=== PATIENT | male | born 1940 | race Caucasian/White ===

== ENCOUNTER 2023-02-22 10:56 | Outpatient (AMB) | payer OTHER, SELFPAY ==
[2023-02-22 11:16] VITALS: BP 120/80; PULSE 61; O2SAT 95; BMI 34.5
--- NOTE | 2023-02-22 11:16 | A.OFFPC_ITS ---
Vital Signs 02/22/23 11:16 Height 5 ft 11 in Weight 247 lb 4 oz BMI 34.5 BP 120/80 Blood Pressure Location Lt brachial Position Sitting Pulse 61 Pulse Source Pulse Oximeter Pulse Oximetry (%) 95 Oxygen Delivery Method Room Air Intake Visit Reasons: HTN, GERD, anxiety Due Diligence Coordinator Required: No Accompanied by: Self / Same As Patient Allergies No Known Drug Allergies Allergy (Unknown, Verified 02/22/23 12:04) Unknown Medication List - Last Reconciled 02/22/23 by Prudencio Hwang MD alprazolam ER 1 mg PO QAM PRN 90 days bupropion HCl 300 mg PO DAILY 90 days mirtazapine 15 mg PO BEDTIME 90 days omeprazole 40 mg PO DAILY 90 days valsartan-hydrochlorothiazide 160-12.5 mg 1 tab PO DAILY 90 days Tobacco use date assessed: 02/22/23 Fall risk assessment: No Falls in past year Last assessed Fall Risk: 02/22/23 Dental Screening Dental Screen Date: 02/22/23 Did you have a dental visit in the last 12 months?: Yes Did you have a dental problem in the last 6 months where you did not have access to dental care?: No Was dental information given to patient?: Patient has dentist HPI HTN, GERD, anxiety HPI Details Patient comes in today for his follow up visit States that he feels okay Is still feeling somewhat depressed lately since his a few months ago States that his children checks up on him regularly to make sure he is doing okay He denies any headaches or dizziness Denies any chest pains, no SOB No nausea/vomiting, no abdominal pain No change in bowel habits noted Needs several of his Rx refilled Had his follow up labs done at [facility] about 4 weeks ago - will try to follow up the results of these labs [facility] Medical History Obesity (BMI 30-39.9) Melanoma Depression Anxiety GERD without esophagitis Achilles tendinosis of right lower extremity Degenerative arthritis of right knee Vitamin D deficiency Benign essential hypertension Surgical History H/O right knee surgery History of cataract surgery Family History Mother No problems noted. Father No problems noted. Social History Housing: Condominium Alcohol intake: current Alcohol intake frequency: a few times a month Patient Tobacco Use Status: Never used Tobacco e-Cigarette/Vaping Use: Never Used Second Hand Smoke Exposure: Yes Current occupational status: retired Cognitive needs: No Hearing needs: Yes Vision needs: Yes Questionnaire PHQ-9 Over the last 2 weeks, how often have you been bothered by any of the following problems? 1. Little interest or pleasure in doing things: not at all 2. Feeling down, depressed, or hopeless: not at all 3. Trouble falling or staying asleep, or sleeping too much: not at all 4. Feeling tired or having little energy: not at all 5. Poor appetite or overeating: not at all 6. Feeling bad about yourself - or that you are a failure or have let yourself or your family down: not at all 7. Trouble concentrating on things, such as reading the newspaper or watching television: not at all 8. Moving or speaking so slowly that other people could have noticed. Or the opposite - being so fidgety or restless that you have been moving around a lot more than usual: not at all 9. Thoughts that you would be better off or of hurting yourself in some way: not at all Total score: 0 Depression Screening Interpretation: Negative (is on Rx) Depression Screening Done: Yes 63157 - PHQ-9 Billing: Yes Source: Developed by Drs. Marco A Werner, Adelaida Davis, Jero Patiño and colleagues, with an educational colette from [employer]. Thrive Questionnaire Date Thrive assessed: 02/22/23 I am a: Patient What is your living situation today?: I have a steady place to live Within the past 12 months, did the food you bought not last and you didn't have the money to get more?: Never true Within the past 12 months, did you worry whether your food would run out before you got money to buy more?: Never true Do you have trouble paying for medicines?: No Do you have trouble getting transportation to medical appointments?: No Do you have trouble paying your heating and electricity bill?: No Do you have trouble taking care of your child, family member or friend?: No Do you have trouble with day-to-day activities such as bathing, preparing meals, shopping, managing finances, etc.?: No Are you currently unemployed and looking for a job?: No Are you interested in more education?: No Please select the resources that you would like help with: None Currently or been in a relationship where the following occur: no concerns reported AUDIT C Alcohol Use Questionnaire (AUDIT-C) 1. How often do you have a drink containing alcohol?: 2-3 times a week 2. How many drinks containing alcohol do you have on a typical day when you are drinking?: 1 or 2 3. How often do you have six or more drinks on one occasion?: Never Total Score: 3 Score Reviewed/Action Taken: Yes KINJAL-7 AMB Questionnaire KINJAL-7 Date KINJAL - 7 assessed: 02/22/23 Feeling nervous, anxious, or on edge: 0 = Not at all Not being able to stop or control worryin = Not at all Worrying too much about different things: 0 = Not at all Trouble relaxin = Not at all Being so restless that it is hard to sit still: 0 = Not at all Becoming easily annoyed or irritable: 0 = Not at all Feeling afraid as if something awful might happen: 0 = Not at all Total KINJAL-7 score (0-4 normal; 5-9 mild; 10-14 moderate; 15-21 severe): 0 Source: Developed by Drs. Marco A Werner, Adelaida Davis, Jero Patiño and colleagues, with an educational colette from [employer]. Review of Systems Const Denies fatigue, Denies fever(s) and Denies headache(s) ENT Denies dysphagia, Denies dizziness, Denies otalgia, Denies headache(s), Denies odynophagia and Denies sore throat Card Denies chest pain, Denies palpitations and Denies dyspnea Resp Denies cough and Denies dyspnea GI Denies abdominal pain, Denies constipation, Denies dysphagia, Denies heartburn, Denies diarrhea, Denies loose stools, Denies nausea, Denies odynophagia and Denies vomiting Denies dysuria, Denies nocturia and Denies urinary frequency Musc Denies back pain Skin/Breast Denies rash Neuro Denies dizziness and Denies headache(s) Psych Reports depression (Rx helping) Endo Denies fatigue and Denies palpitations Physical exam (Primary Care) Vital Signs: Last Vital Signs Pulse 61 02/22/23 11:16 BP 120/80 02/22/23 11:16 Pulse Ox 95 02/22/23 11:16 Oxygen Delivery Method Room Air 02/22/23 11:16 BMI result Body Mass Index 34.5 Tobacco/Smoking Status: Tobacco use Status Tobacco use date assessed 02/22/23 02/22/23 11:18 Patient Tobacco Use Status Never used Tobacco 02/22/23 11:18 e-Cigarette/Vaping Use Never Used 02/22/23 11:18 PHQ-9: PHQ-9 Score PHQ-9: Total score 0 02/22/23 12:04 Depression Screening Interpretation: Negative (is on Rx) Thrive Assessment: Date of Thrive Assessment Date Thrive assessed 02/22/23 02/22/23 11:18 Currently or been in a relationship where the following occur: no concerns reported Const General: no acute distress and alert HENMT Ears: TM's normal bilaterally and EAC's normal Throat: Yes posterior oropharynx normal and Yes tonsils normal (no TP congestion) Neck Neck: Yes no lymphadenopathy and Yes supple Resp Auscultation: clear to auscultation bilaterally, no rales and no wheezes Cardio Rate: regular rate Rhythm: regular rhythm Heart sounds: no murmurs GI Palpation (GI): Soft to palpation and nontender Auscultation: normal bowel sounds Skin Rashes: no rashes Extrem General: Yes no clubbing, cyanosis or edema Assessment and Plan Assessment & Plan (1) Benign essential hypertension: Code(s): I10 - Essential (primary) hypertension Plan: Will try to follow up the results of his labs done at [facility] last month - patient is advised that we will check back with him if there are any unexpected or unusual resuits once we get the chance to go over his lab results as soon as we receive them from [facility] Reinforced low sodium diet - goal is systolic BP of at least 140 mm or less Continue Valsartan-HCT 160-12.5 mg QD Will have patient recheck his labs in 4 months for follow up (2) Vitamin D deficiency: Code(s): E55.9 - Vitamin D deficiency, unspecified Plan: Corrected on his previous labs done earlier this year Will recheck his Vitamin D level in 4 months for follow up (3) GERD without esophagitis: Code(s): K21.9 - Gastro-esophageal reflux disease without esophagitis Plan: Dietary restrictions reinforced Continue Omeprazole 40 mg QD Follow up with GI as scheduled (4) Frequent loose stools: Code(s): R19.7 - Diarrhea, unspecified Qualifiers: Diarrhea type: unspecified type Qualified Code(s): R19.7 - Diarrhea, unspecified Plan: Resolved - states that this appears to have been due to nerves (anxiety) He was referred to [facility] in [place] for repeat colonoscopy previously but he was not happy at being told that he needed to schedule an appointment to see the doctor there first before they can schedule him for the procedure as Dr. Goddard, who he used to see before, is no longer working with them States that he decided that he did not want to wait a few months to see the doctor and no longer wants to do his colonoscopy as he feels that he no longer n eeds it at his age Have agreed to at least do Cologuard testing, which came out negative in October 2022 (5) Anxiety: Code(s): F41.9 - Anxiety disorder, unspecified Plan: Continue Alprazolam ER 1 mg Q AM PRN and Bupropion XL 300 mg Q AM (6) Depression: Code(s): F32.A - Depression, unspecified Qualifiers: Active/Remission status: currently active Depression Type: major depressive disorder Major depression episode severity: unspecified Major depression recurrence: recurrent Qualified Code(s): F33.9 - Major depressive disorder, recurrent, unspecified Plan: Continue Bupropion XL 300 mg Q AM and Mirtazapine 15 mg Q HS Is feeling somewhat more depressed lately as his a few months ago Follow up with psychiatry as scheduled (7) Obesity (BMI 30-39.9): Code(s): E66.9 - Obesity, unspecified Plan: Reinforced diet/exercise as tolerated/lose weight Plan Follow up in 4 months Orders: Orders Complete Blood Count Auto Diff 4 Months I10 - Essential (primary) hypertension Lipid Panel 4 Months E78.00 - Pure hypercholesterolemia, unspecified TSH reflex Free T4 4 Months E78.00 - Pure hypercholesterolemia, unspecified UA CC w/rflx Micro + Cult 4 Months R30.0 - Dysuria Comprehensive Gordon. Panel Fast 4 Months E78.00 - Pure hypercholesterolemia, unspecified Vitamin D 25-OH Total 4 Months E55.9 - Vitamin D deficiency, unspecified Medications: Refilled mirtazapine 15 mg PO BEDTIME 90 days 90 tabs 3RF F32.A - Depression, unspecified omeprazole 40 mg PO DAILY 90 days 90 caps 3RF K21.9 - Gastro-esophageal reflux disease without esophagitis valsartan-hydrochlorothiazide 160-12.5 mg 1 tab PO DAILY 90 days 90 tabs 3RF I10 - Essential (primary) hypertension bupropion HCl 300 mg PO DAILY 90 days 90 tabs 3RF F32.A - Depression, unspecified, F41.9 - Anxiety disorder, unspecified Coding Level of Care Code Est Pt Level 4 (08663) Diagnoses Benign essential hypertension I10 Vitamin D deficiency E55.9 GERD without esophagitis K21.9 Diarrhea, unspecified type R19.7 Diarrhea type: unspecified type Anxiety F41.9 Episode of recurrent major depressive disorder, unspecified depression episode severity F33.9 Active/Remission status: currently active Depression Type: major depressive disorder Major depression episode severity: unspecified Major depression recurrence: recurrent Obesity (BMI 30-39.9) E66.9
== END 2023-02-22 12:14 | disposition home or self-care (01) ==
PROVIDERS: PCP Internal Medicine; Visit Provider Internal Medicine
DX: I10 Essential (primary) hypertension (principal); F33.9 Major depressive disorder, recurrent, unspecified; Z68.34 Body mass index [BMI] 34.0-34.9, adult; E55.9 Vitamin D deficiency, unspecified; E66.9 Obesity, unspecified; K21.9 Gastro-esophageal reflux disease without esophagitis; R19.7 Diarrhea, unspecified; F41.9 Anxiety disorder, unspecified
CPT/HCPCS: 99214

== ENCOUNTER 2023-07-12 11:25 | Outpatient (AMB) | payer OTHER, SELFPAY ==
[2023-07-12 11:38] VITALS: BP 130/74; PULSE 61; O2SAT 96; BMI 33.8
--- NOTE | 2023-07-12 11:38 | MHC.PC.OV ---
Vital Signs 07/12/23 11:38 Height 5 ft 11 in Weight 242 lb 8 oz BMI 33.8 BP 130/74 Blood Pressure Location Lt brachial Position Sitting Pulse 61 Pulse Source Pulse Oximeter Pulse Oximetry (%) 96 Oxygen Delivery Method Room Air Intake Visit Reasons: HTN, GERD, dyslipidemia, anxiety Cable Tool Operator Required: No Accompanied by: Self / Same As Patient Allergies No Known Drug Allergies Allergy (Unknown, Verified 07/12/23 12:14) Unknown Medication List - Last Reconciled 07/12/23 by Prudencio Hwang MD alprazolam ER 1 mg PO QAM PRN 90 days bupropion HCl 300 mg PO DAILY 90 days mirtazapine 15 mg PO BEDTIME 90 days omeprazole 40 mg PO DAILY 90 days valsartan-hydrochlorothiazide 160-12.5 mg 1 tab PO DAILY 90 days Tobacco use date assessed: 07/12/23 Fall risk assessment: No Falls in past year Last assessed Fall Risk: 07/12/23 Dental Screening Dental Screen Date: 07/12/23 Did you have a dental visit in the last 12 months?: Yes Did you have a dental problem in the last 6 months where you did not have access to dental care?: No Was dental information given to patient?: Patient has dentist HPI HTN, GERD, dyslipidemia, anxiety HPI Details Patient comes in today for his follow up visit States that he feels well He denies any headaches or dizziness Denies any chest pains, no shortness of breath No nausea/ vomiting, no abdominal pain No change in bowel habits noted Had his follow-up labs done at [facility] last month - to discuss his results [facility] Medical History Obesity (BMI 30-39.9) Melanoma Depression Anxiety GERD without esophagitis Achilles tendinosis of right lower extremity Degenerative arthritis of right knee Vitamin D deficiency Benign essential hypertension Surgical History H/O right knee surgery History of cataract surgery Family History Mother No problems noted. Father No problems noted. Social History Housing: Condominium Alcohol intake: current Alcohol intake frequency: a few times a month Patient Tobacco Use Status: Never used Tobacco e-Cigarette/Vaping Use: Never Used Second Hand Smoke Exposure: Yes service: No Current occupational status: retired Cognitive needs: No Hearing needs: Yes Vision needs: Yes Questionnaire PHQ-9 Over the last 2 weeks, how often have you been bothered by any of the following problems? 1. Little interest or pleasure in doing things: not at all 2. Feeling down, depressed, or hopeless: not at all 3. Trouble falling or staying asleep, or sleeping too much: not at all 4. Feeling tired or having little energy: not at all 5. Poor appetite or overeating: not at all 6. Feeling bad about yourself - or that you are a failure or have let yourself or your family down: not at all 7. Trouble concentrating on things, such as reading the newspaper or watching television: not at all 8. Moving or speaking so slowly that other people could have noticed. Or the opposite - being so fidgety or restless that you have been moving around a lot more than usual: not at all 9. Thoughts that you would be better off or of hurting yourself in some way: not at all Total score: 0 Depression Screening Interpretation: Negative (is on Rx) Depression Screening Done: Yes 22848 - PHQ-9 Billing: Yes Source: Developed by Drs. Marco A Werner, Adelaida Davis, Jero Patiño and colleagues, with an educational colette from [employer]. Thrive Questionnaire Date Thrive assessed: 07/12/23 I am a: Patient What is your living situation today?: I have a steady place to live Within the past 12 months, did the food you bought not last and you didn't have the money to get more?: Never true Within the past 12 months, did you worry whether your food would run out before you got money to buy more?: Never true Do you have trouble paying for medicines?: No Do you have trouble getting transportation to medical appointments?: No Do you have trouble paying your heating and electricity bill?: No Do you have trouble taking care of your child, family member or friend?: No Do you have trouble with day-to-day activities such as bathing, preparing meals, shopping, managing finances, etc.?: No Are you currently unemployed and looking for a job?: No Are you interested in more education?: No Please select the resources that you would like help with: None Currently or been in a relationship where the following occur: no concerns reported THRIVE Score: 0 AUDIT C Alcohol Use Questionnaire (AUDIT-C) 1. How often do you have a drink containing alcohol?: 2-3 times a week 2. How many drinks containing alcohol do you have on a typical day when you are drinking?: 1 or 2 3. How often do you have six or more drinks on one occasion?: Never Total Score: 3 Score Reviewed/Action Taken: Yes KINJAL-7 AMB Questionnaire KINJAL-7 Date KINJAL - 7 assessed: 07/12/23 Feeling nervous, anxious, or on edge: 0 = Not at all Not being able to stop or control worryin = Not at all Worrying too much about different things: 0 = Not at all Trouble relaxin = Not at all Being so restless that it is hard to sit still: 0 = Not at all Becoming easily annoyed or irritable: 0 = Not at all Feeling afraid as if something awful might happen: 0 = Not at all Total KINJAL-7 score (0-4 normal; 5-9 mild; 10-14 moderate; 15-21 severe): 0 Source: Developed by Drs. aMrco A Werner, Adelaida Davis, Jero Patiño and colleagues, with an educational colette from [employer]. Review of Systems Const Denies fatigue, Denies fever(s) and Denies headache(s) ENT Denies dysphagia, Denies dizziness, Denies otalgia, Denies headache(s), Denies odynophagia and Denies sore throat Card Denies chest pain, Denies palpitations and Denies dyspnea Resp Denies cough and Denies dyspnea GI Denies abdominal pain, Denies constipation, Denies dysphagia, Denies heartburn, Denies diarrhea, Denies loose stools, Denies nausea, Denies odynophagia and Denies vomiting Denies dysuria, Denies nocturia and Denies urinary frequency Musc Denies back pain Skin/Breast Denies rash Neuro Denies dizziness and Denies headache(s) Psych Reports depression (Rx helping) Endo Denies fatigue and Denies palpitations Physical exam (Primary Care) Vital Signs: Last Vital Signs Pulse 61 07/12/23 11:38 BP 130/74 07/12/23 11:38 Pulse Ox 96 07/12/23 11:38 Oxygen Delivery Method Room Air 07/12/23 11:38 BMI result Body Mass Index 33.8 Tobacco/Smoking Status: Tobacco use Status Tobacco use date assessed 07/12/23 07/12/23 11:40 Patient Tobacco Use Status Never used Tobacco 07/12/23 11:40 e-Cigarette/Vaping Use Never Used 07/12/23 11:40 PHQ-9: PHQ-9 Score PHQ-9: Total score 0 07/12/23 12:15 Depression Screening Interpretation: Negative (is on Rx) Thrive Assessment: Date of Thrive Assessment Date Thrive assessed 07/12/23 07/12/23 11:40 Currently or been in a relationship where the following occur: no concerns reported Const General: no acute distress and alert HENMT Ears: TM's normal bilaterally and EAC's normal Throat: Yes posterior oropharynx normal and Yes tonsils normal (no TP congestion) Neck Neck: Yes no lymphadenopathy and Yes supple Resp Auscultation: clear to auscultation bilaterally, no rales and no wheezes Cardio Rate: regular rate Rhythm: regular rhythm Heart sounds: no murmurs GI Palpation (GI): Soft to palpation and nontender Auscultation: normal bowel sounds General: Yes no CVA tenderness Back/Spine/Pelvis Back: no CVA tenderness Skin Rashes: no rashes Extrem General: Yes no clubbing, cyanosis or edema Assessment and Plan Assessment & Plan (1) Benign essential hypertension: Code(s): I10 - Essential (primary) hypertension Plan: Results of his labs done at [facility] last month reviewed and discussed with patient Reinforced low sodium diet - goal is systolic BP of at least 140 mm or less Continue Valsartan-HCT 160-12.5 mg QD (2) Vitamin D deficiency: Code(s): E55.9 - Vitamin D deficiency, unspecified Plan: Corrected on his labs done last month (3) GERD without esophagitis: Code(s): K21.9 - Gastro-esophageal reflux disease without esophagitis Plan: Dietary restrictions reinforced Continue Omeprazole 40 mg QD Follow up with GI as scheduled Patient also had a Cologuard test done last year that came out negative (4) Anxiety: Code(s): F41.9 - Anxiety disorder, unspecified Plan: Continue Alprazolam ER 1 mg Q AM PRN and Bupropion XL 300 mg Q AM (5) Depression: Code(s): F32.A - Depression, unspecified Qualifiers: Active/Remission status: currently active Depression Type: major depressive disorder Major depression episode severity: unspecified Major depression recurrence: recurrent Qualified Code(s): F33.9 - Major depressive disorder, recurrent, unspecified Plan: Continue Bupropion XL 300 mg Q AM and Mirtazapine 15 mg Q HS He was feeling somewhat depressed when his last year but states that he is feeling better now Follow up with psychiatry as scheduled (6) Obesity (BMI 30-39.9): Code(s): E66.9 - Obesity, unspecified Plan: Reinforced diet/exercise as tolerated/lose weight Plan Follow up in 4 months Coding Level of Care Code Est Pt Level 4 (64074) Diagnoses Benign essential hypertension I10 Vitamin D deficiency E55.9 GERD without esophagitis K21.9 Anxiety F41.9 Episode of recurrent major depressive disorder, unspecified depression episode severity F33.9 Active/Remission status: currently active Depression Type: major depressive disorder Major depression episode severity: unspecified Major depression recurrence: recurrent Obesity (BMI 30-39.9) E66.9
== END 2023-07-12 12:21 | disposition home or self-care (01) ==
PROVIDERS: PCP Internal Medicine; Visit Provider Internal Medicine
DX: I10 Essential (primary) hypertension (principal); F33.9 Major depressive disorder, recurrent, unspecified; E66.9 Obesity, unspecified; Z68.33 Body mass index [BMI] 33.0-33.9, adult; E55.9 Vitamin D deficiency, unspecified; K21.9 Gastro-esophageal reflux disease without esophagitis; F41.9 Anxiety disorder, unspecified
CPT/HCPCS: 99214

== ENCOUNTER 2023-11-15 09:16 | Outpatient (AMB) | payer OTHER, SELFPAY ==
[2023-11-15 09:20] VITALS: BP 122/60; PULSE 76; O2SAT 94; BMI 33.9
--- NOTE | 2023-11-15 09:20 | MHC.PC.OV ---
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 Required: No Allergies No Known Drug Allergies Allergy (Unknown, Verified 11/15/23 09:29) Unknown Medication List - Last Reconciled 11/15/23 by Prudencio Hwang MD alprazolam ER 1 mg PO QAM PRN 90 days bupropion HCl XL 300 mg PO DAILY 90 days mirtazapine 15 mg PO BEDTIME 90 days omeprazole 40 mg PO DAILY 90 days valsartan-hydrochlorothiazide 160-12.5 mg 1 tab PO DAILY 90 days Tobacco use date assessed: 07/12/23 Fall risk assessment: No Falls in past year Last assessed Fall Risk: 11/15/23 Dental Screening Dental Screen Date: 07/12/23 HPI 4 Month F/U HPI Details Patient comes in today for his follow up visit States that he feels okay He denies any headaches or dizziness Denies any chest pains, no shortness of breath No nausea/ vomiting, no abdominal pain No change in bowel habits noted PFSH Medical History Obesity (BMI 30-39.9) Melanoma Depression Anxiety GERD without esophagitis Achilles tendinosis of right lower extremity Degenerative arthritis of right knee Vitamin D deficiency Benign essential hypertension Surgical History H/O right knee surgery History of cataract surgery Family History Mother No problems noted. Father No problems noted. Social History Housing: Condominium Alcohol intake: current Alcohol intake frequency: a few times a month Patient Tobacco Use Status: Never used Tobacco e-Cigarette/Vaping Use: Never Used Second Hand Smoke Exposure: Yes service: No Current occupational status: retired Cognitive needs: No Hearing needs: Yes Vision needs: Yes Questionnaire Thrive Questionnaire Date Thrive assessed: 07/12/23 I am a: Patient What is your living situation today?: I have a steady place to live Within the past 12 months, did the food you bought not last and you didn't have the money to get more?: Never true Within the past 12 months, did you worry whether your food would run out before you got money to buy more?: Never true Do you have trouble paying for medicines?: No Do you have trouble getting transportation to medical appointments?: No Do you have trouble paying your heating and electricity bill?: No Do you have trouble taking care of your child, family member or friend?: No Do you have trouble with day-to-day activities such as bathing, preparing meals, shopping, managing finances, etc.?: No Are you currently unemployed and looking for a job?: No Are you interested in more education?: No Please select the resources that you would like help with: None THRIVE Score: 0 AUDIT C Alcohol Use Questionnaire (AUDIT-C) 1. How often do you have a drink containing alcohol?: 2-3 times a week 2. How many drinks containing alcohol do you have on a typical day when you are drinking?: 1 or 2 3. How often do you have six or more drinks on one occasion?: Never Total Score: 3 Score Reviewed/Action Taken: Yes KINJAL-7 AMB Questionnaire KINJAL-7 Date KINJAL - 7 assessed: 07/12/23 Source: Developed by Drs. Marco A Werner, Adelaida Davsi, Jero Patiño and colleagues, with an educational colette from [employer]. Review of Systems Const Denies chills, Denies fatigue, Denies fever(s) and Denies headache(s) ENT Denies dysphagia, Denies dizziness, Denies otalgia, Denies headache(s), Denies neck pain, Denies odynophagia and Denies sore throat Card Denies chest pain, Denies palpitations and Denies dyspnea Resp Denies cough and Denies dyspnea GI Denies abdominal pain, Denies constipation, Denies dysphagia, Denies heartburn, Denies diarrhea, Denies loose stools, Denies nausea, Denies odynophagia and Denies vomiting Denies dysuria, Denies nocturia and Denies urinary frequency Musc Denies back pain and Denies neck pain Skin/Breast Denies rash Neuro Denies dizziness and Denies headache(s) Psych Reports depression (Rx helping) Endo Denies fatigue and Denies palpitations Physical exam (Primary Care) Vital Signs: Last Vital Signs Pulse 76 11/15/23 09:20 BP 122/60 11/15/23 09:20 Pulse Ox 94 11/15/23 09:20 Oxygen Delivery Method Room Air 11/15/23 09:20 BMI result Body Mass Index 33.9 Tobacco/Smoking Status: Tobacco use Status Tobacco use date assessed 07/12/23 11/15/23 09:24 Patient Tobacco Use Status Never used Tobacco 11/15/23 09:24 e-Cigarette/Vaping Use Never Used 11/15/23 09:24 Thrive Assessment: Date of Thrive Assessment Date Thrive assessed 07/12/23 11/15/23 09:24 Const General: no acute distress and alert HENMT Ears: TM's normal bilaterally and EAC's normal Throat: Yes posterior oropharynx normal and Yes tonsils normal (no TP congestion) Neck Neck: Yes no lymphadenopathy and Yes supple Thyroid: Thyroid normal Resp Auscultation: clear to auscultation bilaterally, no rales and no wheezes Cardio Rate: regular rate Rhythm: regular rhythm Heart sounds: no murmurs GI Palpation (GI): Soft to palpation and nontender Auscultation: normal bowel sounds General: Yes no CVA tenderness Back/Spine/Pelvis Back: no CVA tenderness Skin Rashes: no rashes Extrem General: Yes no clubbing, cyanosis or edema Assessment and Plan Assessment & Plan (1) Benign essential hypertension: Code(s): I10 - Essential (primary) hypertension Plan: Reinforced low sodium diet - goal is systolic BP of at least 140 mm or less Continue Valsartan-HCT 160-12.5 mg QD (2) GERD without esophagitis: Code(s): K21.9 - Gastro-esophageal reflux disease without esophagitis Plan: Dietary restrictions reinforced Continue Omeprazole 40 mg QD Follow up with GI as scheduled Patient also had a Cologuard test done last year that came out negative (3) Vitamin D deficiency: Code(s): E55.9 - Vitamin D deficiency, unspecified Plan: Corrected on his labs done a few months ago Continue OTC Vitamin D daily (4) Anxiety: Code(s): F41.9 - Anxiety disorder, unspecified Plan: Continue Alprazolam ER 1 mg Q AM PRN and Bupropion XL 300 mg Q AM (5) Depression: Code(s): F32.A - Depression, unspecified Qualifiers: Depression Type: major depressive disorder Major depression recurrence: recurrent Active/Remission status: currently active Major depression episode severity: unspecified Qualified Code(s): F33.9 - Major depressive disorder, recurrent, unspecified Plan: Continue Bupropion XL 300 mg Q AM and Mirtazapine 15 mg Q HS He was feeling somewhat depressed when his last year but he is feeling much better now (6) Obesity (BMI 30-39.9): Code(s): E66.9 - Obesity, unspecified Plan: Reinforced diet/exercise as tolerated/lose weight Plan Follow up in 4 months Patient is advised that he does not need to have any follow up labs done yet - we will order his labs for him at his next appointment for his early spring/late winter 2024 visit Coding Level of Care Code Est Pt Level 3 (56694) Diagnoses Benign essential hypertension I10 GERD without esophagitis K21.9 Vitamin D deficiency E55.9 Anxiety F41.9 Episode of recurrent major depressive disorder, unspecified depression episode severity F33.9 Depression Type: major depressive disorder Major depression recurrence: recurrent Active/Remission status: currently active Major depression episode severity: unspecified Obesity (BMI 30-39.9) E66.9
== END 2023-11-15 09:37 | disposition home or self-care (01) ==
PROVIDERS: PCP Internal Medicine; Visit Provider Internal Medicine
DX: I10 Essential (primary) hypertension (principal); F33.9 Major depressive disorder, recurrent, unspecified; E66.9 Obesity, unspecified; Z68.33 Body mass index [BMI] 33.0-33.9, adult; K21.9 Gastro-esophageal reflux disease without esophagitis; E55.9 Vitamin D deficiency, unspecified; F41.9 Anxiety disorder, unspecified
CPT/HCPCS: 99213

== ENCOUNTER 2024-03-20 10:16 | Outpatient (AMB) | payer OTHER, SELFPAY ==
[2024-03-20 10:21] VITALS: BP 116/62; PULSE 45; O2SAT 97; BMI 33.7
--- NOTE | 2024-03-20 10:21 | A.OFFPC_ITS ---
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 Accompanied by: Self / Same As Patient Allergies No Known Drug Allergies Allergy (Unknown, Verified 03/20/24 10:58) Unknown Medication List - Last Reconciled 03/20/24 by Prudencio Hwang MD alprazolam ER 1 mg PO QAM PRN 90 days bupropion HCl XL 300 mg PO DAILY 90 days mirtazapine 15 mg PO BEDTIME 90 days omeprazole 40 mg PO DAILY 90 days valsartan-hydrochlorothiazide 160-12.5 mg 1 tab PO DAILY 90 days Tobacco use date assessed: 03/20/24 Fall risk assessment: No Falls in past year Last assessed Fall Risk: 03/20/24 Dental Screening Dental Screen Date: 03/20/24 Did you have a dental visit in the last 12 months?: Yes Did you have a dental problem in the last 6 months where you did not have access to dental care?: No Was dental information given to patient?: Patient has dentist HPI [facility] f/u HPI Details Patient comes in today for his follow up visit States that he feels okay He denies any headaches or dizziness Denies any chest pains, no increased SOB No nausea/vomiting, no abdominal pain No change in bowel habits noted Needs a couple of his Rx refilled PFSH Medical History Obesity (BMI 30-39.9) Melanoma Depression Anxiety GERD without esophagitis Achilles tendinosis of right lower extremity Degenerative arthritis of right knee Vitamin D deficiency Benign essential hypertension Surgical History H/O right knee surgery History of cataract surgery Family History Mother No problems noted. Father No problems noted. Social History Housing: Condominium Alcohol intake: current Alcohol intake frequency: a few times a month Patient Tobacco Use Status: Never used Tobacco e-Cigarette/Vaping Use: Never Used Second Hand Smoke Exposure: Yes service: No Current occupational status: retired Cognitive needs: No Hearing needs: Yes Vision needs: Yes Questionnaire PHQ-9 Over the last 2 weeks, how often have you been bothered by any of the following problems? 1. Little interest or pleasure in doing things: not at all 2. Feeling down, depressed, or hopeless: not at all 3. Trouble falling or staying asleep, or sleeping too much: not at all 4. Feeling tired or having little energy: not at all 5. Poor appetite or overeating: not at all 6. Feeling bad about yourself - or that you are a failure or have let yourself or your family down: not at all 7. Trouble concentrating on things, such as reading the newspaper or watching television: not at all 8. Moving or speaking so slowly that other people could have noticed. Or the opposite - being so fidgety or restless that you have been moving around a lot more than usual: not at all 9. Thoughts that you would be better off or of hurting yourself in some way: not at all Total score: 0 Depression Screening Interpretation: Negative (is on Rx) Depression Screening Done: Yes 16338 - PHQ-9 Billing: Yes Source: Developed by Drs. Marco A Werner, Adelaida Davis, Jero Patiño and colleagues, with an educational colette from [employer]. Thrive Questionnaire Date Thrive assessed: 03/20/24 I am a: Patient What is your living situation today?: I have a steady place to live Within the past 12 months, did the food you bought not last and you didn't have the money to get more?: Never true Within the past 12 months, did you worry whether your food would run out before you got money to buy more?: Never true Do you have trouble paying for medicines?: No Do you have trouble getting transportation to medical appointments?: No Do you have trouble paying your heating and electricity bill?: No Do you have trouble taking care of your child, family member or friend?: No Do you have trouble with day-to-day activities such as bathing, preparing meals, shopping, managing finances, etc.?: No Are you currently unemployed and looking for a job?: No Are you interested in more education?: No Please select the resources that you would like help with: None Currently or been in a relationship where the following occur: No concerns reported THRIVE Score: 0 AUDIT C Alcohol Use Questionnaire (AUDIT-C) 1. How often do you have a drink containing alcohol?: 2-3 times a week 2. How many drinks containing alcohol do you have on a typical day when you are drinking?: 1 or 2 3. How often do you have six or more drinks on one occasion?: Never Total Score: 3 Score Reviewed/Action Taken: Yes KINJAL-7 AMB Questionnaire KINJAL-7 Date KINJAL - 7 assessed: 03/20/24 Feeling nervous, anxious, or on edge: 0 = Not at all Not being able to stop or control worryin = Not at all Worrying too much about different things: 0 = Not at all Trouble relaxin = Not at all Being so restless that it is hard to sit still: 0 = Not at all Becoming easily annoyed or irritable: 0 = Not at all Feeling afraid as if something awful might happen: 0 = Not at all Total KINJAL-7 score (0-4 normal; 5-9 mild; 10-14 moderate; 15-21 severe): 0 Source: Developed by Drs. Marco A Werner, Adelaida Davis, Jero Patiño and colleagues, with an educational colette from [employer]. Review of Systems Const Denies chills, Denies fatigue, Denies fever(s) and Denies headache(s) ENT Denies dysphagia, Denies dizziness, Denies otalgia, Denies headache(s), Denies neck pain, Denies odynophagia and Denies sore throat Card Denies chest pain, Denies palpitations and Denies dyspnea Resp Denies cough and Denies dyspnea GI Denies abdominal pain, Denies constipation, Denies dysphagia, Denies heartburn, Denies diarrhea, Denies loose stools, Denies nausea, Denies odynophagia and Denies vomiting Denies dysuria, Denies nocturia and Denies urinary frequency Musc Denies back pain and Denies neck pain Skin/Breast Denies rash Neuro Denies dizziness and Denies headache(s) Psych Reports depression (Rx helping) Endo Denies fatigue and Denies palpitations Physical exam (Primary Care) Vital Signs: Last Vital Signs Pulse 45 L 03/20/24 10:21 BP 116/62 03/20/24 10:21 Pulse Ox 97 03/20/24 10:21 Oxygen Delivery Method Room Air 03/20/24 10:21 BMI result Body Mass Index 33.7 Tobacco/Smoking Status: Tobacco use Status Tobacco use date assessed 03/20/24 03/20/24 10:27 Patient Tobacco Use Status Never used Tobacco 03/20/24 10:27 e-Cigarette/Vaping Use Never Used 03/20/24 10:27 PHQ-9: PHQ-9 Score PHQ-9: Total score 0 03/20/24 10:28 Depression Screening Interpretation: Negative (is on Rx) Thrive Assessment: Date of Thrive Assessment Date Thrive assessed 03/20/24 03/20/24 10:27 Currently or been in a relationship where the following occur: No concerns reported Const General: no acute distress and alert HENMT Ears: TM's normal bilaterally and EAC's normal Throat: Yes posterior oropharynx normal and Yes tonsils normal (no TP congestion) Neck Neck: Yes no lymphadenopathy and Yes supple Thyroid: Thyroid normal Resp Auscultation: clear to auscultation bilaterally, no rales and no wheezes Cardio Rate: bradycardic Rhythm: regular rhythm Heart sounds: Murmur heart sound present systolic soft, II/ and at the right sternal border GI Palpation (GI): Soft to palpation and nontender Auscultation: normal bowel sounds General: Yes no CVA tenderness Back/Spine/Pelvis Back: no CVA tenderness Skin Rashes: no rashes Extrem General: Yes no clubbing, cyanosis or edema Office Procedures Flu Questionnaire Does the patient have a severe egg allergy?: No Does the patient have severe life threatening allergies?: No Does the patient have a fever or illness today?: No Has the patient ever had Guillain-Amston Syndrome?: No Has the patient ever had any past reaction to a flu shot?: No Immunizations Fluarix Triv [id number] (PF) 45 mcg (15 mcg x 3)/0.5 mL IM syringe Performing Provider: Prudencio Hwang MD [facility] Documented (not given) by: IGLESIA Carrera on 03/20/24 10:28 Reason Not Given: Patient Refused Coding Level of Care Code Est Pt Level 4 (49633) Diagnoses Bradycardia R00.1 Cardiac murmur R01.1 Benign essential hypertension I10 GERD without esophagitis K21.9 Vitamin D deficiency E55.9 Anxiety F41.9 Episode of recurrent major depressive disorder, unspecified depression episode severity F33.9 Depression Type: major depressive disorder Major depression recurrence: recurrent Active/Remission status: currently active Major depression episode severity: unspecified Obesity (BMI 30-39.9) E66.9 Additional Codes PHQ-9 - 54419 - PHQ-9 Billing: Yes ([id number]) Assessment & Plan Assessment & Plan (1) Bradycardia: Code(s): R00.1 - Bradycardia, unspecified Category: Medical Plan: Patient states that he's had no recent symptoms of dizziness, orthostasis or increased /unexplained fatigue He denies any increased SOB or KIRK; denies any chest pains His heart rate was confirmed to be in the mid 40's on direct palpation of his radial pulse for a full minute; cardiac rhythm appears to be normal on auscultation of his chest, with no apparent skipped beats noted He's had no cardiac tests or procedures done in the past 20 years - previous EKG and echocardiogram were done in the when he was still with Dr. Marcy Rock as her PCP Will send him for a 12-lead EKG PEYTON for further evaluation He will also be sent for an echocardiogram for further evaluation of his cardiac murmur (2) Cardiac murmur: Code(s): R01.1 - Cardiac murmur, unspecified Category: Medical Plan: He has a soft systolic murmur noted on auscultation today, more noticeable at the upper right sternal border suggestive of an aortic stenosis murmur Will send him for an echocardiogram PEYTON for further evaluation - patient is requesting to have this done at [facility] as it is closer to home and more convenient for him (3) Benign essential hypertension: Code(s): I10 - Essential (primary) hypertension Category: Medical Plan: Reinforced low sodium diet - goal is systolic BP of at least 140 mm or less Continue Valsartan-HCT 160-12.5 mg QD (Rx refilled) (4) GERD without esophagitis: Code(s): K21.9 - Gastro-esophageal reflux disease without esophagitis Category: Medical Plan: Dietary restrictions reinforced Continue Omeprazole 40 mg QD (Rx refilled) Follow up with GI as scheduled Patient also had a Cologuard test done last year that came out negative (5) Vitamin D deficiency: Code(s): E55.9 - Vitamin D deficiency, unspecified Category: Medical Plan: Continue OTC Vitamin D3 2000 units daily (6) Anxiety: Code(s): F41.9 - Anxiety disorder, unspecified Category: Medical Plan: Continue Alprazolam ER 1 mg Q AM PRN and Bupropion XL 300 mg Q AM (7) Depression: Code(s): F32.A - Depression, unspecified Category: Medical Qualifiers: Depression Type: major depressive disorder Major depression recurrence: recurrent Active/Remission status: currently active Major depression episode severity: unspecified Qualified Code(s): F33.9 - Major depressive disorder, recurrent, unspecified Plan: Continue Bupropion XL 300 mg Q AM and Mirtazapine 15 mg Q HS (8) Obesity (BMI 30-39.9): Code(s): E66.9 - Obesity, unspecified Category: Medical Plan: Reinforced diet/exercise as tolerated/lose weight Plan Follow up in 4 months Orders: Orders Lipid Panel 4 Months E78.00 - Pure hypercholesterolemia, unspecified TSH reflex Free T4 4 Months E78.00 - Pure hypercholesterolemia, unspecified Influenza [id number] Immunization Today Z23 - Encounter for immunization CA echo transthoracic complete Today R00.1 - Bradycardia, unspecified, R01.1 - Cardiac murmur, unspecified ECG 12 lead EKG Today R00.1 - Bradycardia, unspecified, R01.1 - Cardiac murmur, unspecified Complete Blood Count Auto Diff 4 Months D64.9 - Anemia, unspecified Comprehensive [place]. Panel Fast 4 Months E78.00 - Pure hypercholesterolemia, unspecified UA CC w/rflx Micro + Cult 4 Months R30.0 - Dysuria Vitamin D 25-OH Total 4 Months E55.9 - Vitamin D deficiency, unspecified Medications: Refilled valsartan-hydrochlorothiazide 160-12.5 mg 1 tab PO DAILY 90 days 90 tabs 3RF I10 - Essential (primary) hypertension omeprazole 40 mg PO DAILY 90 days 90 caps 3RF K21.9 - Gastro-esophageal reflux disease without esophagitis
== END 2024-03-20 11:11 | disposition home or self-care (01) ==
PROVIDERS: PCP Internal Medicine; Visit Provider Internal Medicine
DX: R00.1 Bradycardia, unspecified (principal); F33.9 Major depressive disorder, recurrent, unspecified; E66.9 Obesity, unspecified; Z68.33 Body mass index [BMI] 33.0-33.9, adult; R01.1 Cardiac murmur, unspecified; I10 Essential (primary) hypertension; K21.9 Gastro-esophageal reflux disease without esophagitis; E55.9 Vitamin D deficiency, unspecified; F41.9 Anxiety disorder, unspecified

== ENCOUNTER → 2024-03-20 10:16 | Outpatient (BNVA) | payer OTHER, SELFPAY | PROVIDERS: PCP Internal Medicine; Visit Provider Internal Medicine | DX: R00.1 Bradycardia, unspecified (principal); R01.1 Cardiac murmur, unspecified; I10 Essential (primary) hypertension; K21.9 Gastro-esophageal reflux disease without esophagitis; E55.9 Vitamin D deficiency, unspecified; F41.9 Anxiety disorder, unspecified; F33.9 Major depressive disorder, recurrent, unspecified; E66.9 Obesity, unspecified; Z68.33 Body mass index [BMI] 33.0-33.9, adult; Z79.899 Other long term (current) drug therapy; Z28.21 Immunization not carried out because of patient refusal | CPT/HCPCS: 96127 ==

== ENCOUNTER 2024-07-22 09:07 | Outpatient (AMB) | payer OTHER, SELFPAY ==
[2024-07-22 09:20] VITALS: BP 106/62; PULSE 52; O2SAT 96; BMI 33.9
--- NOTE | 2024-07-22 09:20 | MHC.PC.OV ---
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 Required: No Accompanied by: Self / Same As Patient Allergies No Known Drug Allergies Allergy (Unknown, Verified 07/22/24 09:55) Unknown Medication List - Last Reconciled 07/22/24 by Prudencio Hwang MD alprazolam ER 1 mg PO QAM PRN 90 days bupropion HCl XL 300 mg PO DAILY 90 days mirtazapine 15 mg PO BEDTIME 90 days omeprazole 40 mg PO DAILY 90 days valsartan-hydrochlorothiazide 160-12.5 mg 1 tab PO DAILY 90 days Tobacco use date assessed: 07/22/24 Fall risk assessment: No Falls in past year Last assessed Fall Risk: 07/22/24 Dental Screening Dental Screen Date: 07/22/24 Did you have a dental visit in the last 12 months?: No Did you have a dental problem in the last 6 months where you did not have access to dental care?: No Was dental information given to patient?: No HPI [facility] f/u HPI Details Patient comes in today for his follow up visit States that he feels okay although he recalls feeling a mass over his left suprapubic area a few weeks ago States that he tried to schedule an appointment with some surgeons at [facility] as he thought that he had a hernia but was advised that they have no openings for appointments until September 2024 Patient states that the mass seems to have resolved on its own a couple of weeks ago and has not recurred since He denies any heavy lifting or exertional activities lately that could have triggered the supposed hernia He denies any headaches or dizziness Denies any chest pains, no increased SOB No nausea/vomiting, no abdominal pain; reports also no pain over his left suprapubic or inguinal areas lately No change in bowel habits noted He had his follow up labs done at [facility] last month - to discuss his results [facility] Medical History Obesity (BMI 30-39.9) Melanoma Depression Anxiety GERD without esophagitis Achilles tendinosis of right lower extremity Degenerative arthritis of right knee Vitamin D deficiency Benign essential hypertension Surgical History H/O right knee surgery History of cataract surgery Family History Mother No problems noted. Father No problems noted. Social History Housing: Condominium Alcohol intake: current Alcohol intake frequency: a few times a month Patient Tobacco Use Status: Never used Tobacco e-Cigarette/Vaping Use: Never Used Second Hand Smoke Exposure: Yes service: No Current occupational status: retired Cognitive needs: No Hearing needs: Yes Vision needs: Yes Questionnaire PHQ-9 Over the last 2 weeks, how often have you been bothered by any of the following problems? 1. Little interest or pleasure in doing things: not at all 2. Feeling down, depressed, or hopeless: not at all 3. Trouble falling or staying asleep, or sleeping too much: not at all 4. Feeling tired or having little energy: not at all 5. Poor appetite or overeating: not at all 6. Feeling bad about yourself - or that you are a failure or have let yourself or your family down: not at all 7. Trouble concentrating on things, such as reading the newspaper or watching television: not at all 8. Moving or speaking so slowly that other people could have noticed. Or the opposite - being so fidgety or restless that you have been moving around a lot more than usual: not at all 9. Thoughts that you would be better off or of hurting yourself in some way: not at all Total score: 0 Depression Screening Interpretation: Negative (is on Rx) Depression Screening Done: Yes 60082 - PHQ-9 Billing: Yes Source: Developed by Drs. Marco A Werner, Adelaida Davis, Jero Patiño and colleagues, with an educational colette from [employer]. Thrive Questionnaire Date Thrive assessed: 07/22/24 I am a: Patient What is your living situation today?: I have a steady place to live Within the past 12 months, did the food you bought not last and you didn't have the money to get more?: Never true Within the past 12 months, did you worry whether your food would run out before you got money to buy more?: Never true Do you have trouble paying for medicines?: No Do you have trouble getting transportation to medical appointments?: No Do you have trouble paying your heating and electricity bill?: No Do you have trouble taking care of your child, family member or friend?: No Do you have trouble with day-to-day activities such as bathing, preparing meals, shopping, managing finances, etc.?: No Are you currently unemployed and looking for a job?: No Are you interested in more education?: No Please select the resources that you would like help with: None Currently or been in a relationship where the following occur: No concerns reported THRIVE Score: 0 AUDIT C Alcohol Use Questionnaire (AUDIT-C) 1. How often do you have a drink containing alcohol?: Never 2. How many drinks containing alcohol do you have on a typical day when you are drinking?: 3 or 4 3. How often do you have six or more drinks on one occasion?: Weekly Total Score: 4 Score Reviewed/Action Taken: Yes KINJAL-7 AMB Questionnaire KINJAL-7 Date KINJAL - 7 assessed: 07/22/24 Feeling nervous, anxious, or on edge: 0 = Not at all Not being able to stop or control worryin = Not at all Worrying too much about different things: 0 = Not at all Trouble relaxin = Not at all Being so restless that it is hard to sit still: 0 = Not at all Becoming easily annoyed or irritable: 0 = Not at all Feeling afraid as if something awful might happen: 0 = Not at all Total KINJAL-7 score (0-4 normal; 5-9 mild; 10-14 moderate; 15-21 severe): 0 Source: Developed by Drs. Marco A Werner, Adelaida Davis, Jero Patiño and colleagues, with an educational colette from [employer]. Review of Systems Const Denies chills, Denies fatigue, Denies fever(s) and Denies headache(s) ENT Denies dysphagia, Denies dizziness, Denies otalgia, Denies headache(s), Denies neck pain, Denies odynophagia and Denies sore throat Card Denies chest pain, Denies palpitations and Denies dyspnea Resp Denies cough and Denies dyspnea GI Denies abdominal pain, Denies constipation, Denies dysphagia, Denies heartburn, Denies diarrhea, Denies loose stools, Denies nausea, Denies odynophagia and Denies vomiting Details: (+) palpable mass over the left suprapubic area for a few weeks - mass reportedly resolved about 2 weeks ago and has not recurred since Denies dysuria, Denies nocturia and Denies urinary frequency Musc Denies back pain and Denies neck pain Skin/Breast Denies rash Neuro Denies dizziness and Denies headache(s) Psych Reports depression (Rx helping) Endo Denies fatigue and Denies palpitations Physical exam (Primary Care) Vital Signs: Last Vital Signs Pulse 52 07/22/24 09:20 BP 106/62 07/22/24 09:20 Pulse Ox 96 07/22/24 09:20 Oxygen Delivery Method Room Air 07/22/24 09:20 BMI result Body Mass Index 33.9 Tobacco/Smoking Status: Tobacco use Status Tobacco use date assessed 07/22/24 07/22/24 09:27 Patient Tobacco Use Status Never used Tobacco 07/22/24 09:27 e-Cigarette/Vaping Use Never Used 07/22/24 09:27 PHQ-9: PHQ-9 Score PHQ-9: Total score 0 07/22/24 09:27 Depression Screening Interpretation: Negative (is on Rx) Thrive Assessment: Date of Thrive Assessment Date Thrive assessed 07/22/24 07/22/24 09:27 Currently or been in a relationship where the following occur: No concerns reported Const General: no acute distress and alert HENMT Ears: TM's normal bilaterally and EAC's normal Throat: Yes posterior oropharynx normal and Yes tonsils normal (no TP congestion) Neck Neck: Yes supple and No lymphadenopathy Thyroid: Thyroid normal Resp Auscultation: clear to auscultation bilaterally, no rales and no wheezes Cardio Rate: bradycardic Rhythm: regular rhythm Heart sounds: Murmur heart sound present systolic soft, II/ and at the right sternal border GI Palpation (GI): Soft to palpation, nontender and no masses (no masses palpable on exam today, including over the L suprapubic area) Auscultation: normal bowel sounds General: Yes no CVA tenderness Back/Spine/Pelvis Back: no CVA tenderness Thoracic/Lumbar Spine: No lumbar spinal tenderness Skin Rashes: no rashes Extrem General: Yes no clubbing, cyanosis or edema Coding Level of Care Code Est Pt Level 4 (08436) Diagnoses Bradycardia R00.1 Cardiac murmur R01.1 Benign essential hypertension I10 GERD without esophagitis K21.9 Suprapubic mass R19.09 Vitamin D deficiency E55.9 Anxiety F41.9 Episode of recurrent major depressive disorder, unspecified depression episode severity F33.9 Depression Type: major depressive disorder Major depression recurrence: recurrent Active/Remission status: currently active Major depression episode severity: unspecified Obesity (BMI 30-39.9) E66.9 Additional Codes PHQ-9 - 16723 - PHQ-9 Billing: Yes ([id number]) Assessment & Plan Assessment & Plan (1) Bradycardia: Code(s): R00.1 - Bradycardia, unspecified Category: Medical Plan: Patient continues to present with bradycardia, with HR of around 52 bpm today His heart rate was again confirmed to be in the upper 40's on direct palpation of his radial pulse for a full minute; cardiac rhythm appears to be normal on chest auscultation, with no apparent skipped beats noted He states that he's had no recent symptoms of dizziness, orthostasis or increased /unexplained fatigue He denies any increased SOB or KIRK; denies any chest pains He's had no cardiac tests or procedures done in the past 20 years - previous EKG and echocardiogram were done in the when he was still with Dr. Marcy Rock as his PCP He was send for a 12-lead EKG for further evaluation at his last visit and EKG showed sinus bradycardia with 1st degree AV block, LAD, RBBB, with no acute ST-T wave changes He was also sent for an echocardiogram for further evaluation of his cardiac murmur but we have not yet received a report on this so far (2) Cardiac murmur: Code(s): R01.1 - Cardiac murmur, unspecified Category: Medical Plan: He has a soft systolic murmur noted on auscultation, more noticeable at the upper right sternal border suggestive of an aortic stenosis murmur He was sent for an echocardiogram for further evaluation - patient requested to have this done at [facility] as it is closer to home and more convenient for him We have not yet received a report on this so far and we will have our office staff reach out to [facility] to get his report sent over [place] for review (3) Benign essential hypertension: Code(s): I10 - Essential (primary) hypertension Category: Medical Plan: Reinforced low sodium diet - goal is systolic BP of at least 140 mm or less Continue Valsartan-HCT 160-12.5 mg QD (4) GERD without esophagitis: Code(s): K21.9 - Gastro-esophageal reflux disease without esophagitis Category: Medical Plan: Dietary restrictions reinforced Continue Omeprazole 40 mg QD Follow up with GI as scheduled Patient had a Cologuard test done in 2022 that came out negative (5) Suprapubic mass: Code(s): R19.09 - Other intra-abdominal and pelvic swelling, mass and lump Category: Medical Plan: This was reportedly present on the left side for a few weeks until it apparently resolved on its own a couple of weeks ago and have not recurred since Suspect that this may have been a direct left inguinal hernia Patient states that he was able to schedule an appointment with surgery at [facility] but this will be in September 2024 States that he plans to keep it for now and cancel in September 2024 if he no longer needs this appointment, just in case his left suprapubic mass recurs Will send patient for a limited pelvic US in the meantime for further evaluation of his left suprapubic mass to check and see if it is actually an abdominal wall hernia or not (6) Vitamin D deficiency: Code(s): E55.9 - Vitamin D deficiency, unspecified Category: Medical Plan: Continue OTC Vitamin D3 2000 units QD (7) Anxiety: Code(s): F41.9 - Anxiety disorder, unspecified Category: Medical Plan: Continue Alprazolam ER 1 mg Q AM PRN and Bupropion XL 300 mg Q AM (8) Depression: Code(s): F32.A - Depression, unspecified Category: Medical Qualifiers: Depression Type: major depressive disorder Major depression recurrence: recurrent Active/Remission status: currently active Major depression episode severity: unspecified Qualified Code(s): F33.9 - Major depressive disorder, recurrent, unspecified Plan: Continue Bupropion XL 300 mg Q AM and Mirtazapine 15 mg Q HS Follow up with psychiatry as scheduled (9) Obesity (BMI 30-39.9): Code(s): E66.9 - Obesity, unspecified Category: Medical Plan: Reinforced diet; exercise and weight loss may not be realistic given patient's age and comorbidities Plan Follow up in 4 months Orders: Orders US pelvic limited Today K40.90 - Unilateral inguinal hernia, without obstruction or gangrene, not specified as recurrent Vitamin D 25-OH Total 4 Months E55.9 - Vitamin D deficiency, unspecified UA CC w/rflx Micro + Cult 4 Months R30.0 - Dysuria TSH reflex Free T4 4 Months E78.00 - Pure hypercholesterolemia, unspecified Complete Blood Count Auto Diff 4 Months D64.9 - Anemia, unspecified Comprehensive Fisher. Panel Fast 4 Months E78.00 - Pure hypercholesterolemia, unspecified Lipid Panel 4 Months E78.00 - Pure hypercholesterolemia, unspecified
== END 2024-07-22 10:11 | disposition home or self-care (01) ==
LOC: HO.HMCH 09:08
PROVIDERS: PCP Internal Medicine; Visit Provider Internal Medicine
DX: R00.1 Bradycardia, unspecified (principal); F33.9 Major depressive disorder, recurrent, unspecified; E66.9 Obesity, unspecified; Z68.33 Body mass index [BMI] 33.0-33.9, adult; R01.1 Cardiac murmur, unspecified; I10 Essential (primary) hypertension; K21.9 Gastro-esophageal reflux disease without esophagitis; R19.09 Other intra-abdominal and pelvic swelling, mass and lump; E55.9 Vitamin D deficiency, unspecified; F41.9 Anxiety disorder, unspecified

== ENCOUNTER → 2024-07-22 09:07 | Outpatient (BNVA) | payer OTHER, SELFPAY | PROVIDERS: PCP Internal Medicine; Visit Provider Internal Medicine | DX: R00.1 Bradycardia, unspecified (principal); R01.1 Cardiac murmur, unspecified; I10 Essential (primary) hypertension; K21.9 Gastro-esophageal reflux disease without esophagitis; R19.09 Other intra-abdominal and pelvic swelling, mass and lump; E55.9 Vitamin D deficiency, unspecified; F41.9 Anxiety disorder, unspecified; F33.9 Major depressive disorder, recurrent, unspecified; E66.9 Obesity, unspecified; Z68.33 Body mass index [BMI] 33.0-33.9, adult; Z79.899 Other long term (current) drug therapy | CPT/HCPCS: 96127 ==

== ENCOUNTER 2024-08-14 12:48 | Outpatient (REF) | payer MEDICARE, SELFPAY ==
--- NOTE | ~2024-08-14 | US_ITS ---
CLINICAL HISTORY: K40.90 - Unilateral inguinal hernia, without obstruction or gangrene, no... US left inguinal region nonvascular Comparison: None Findings: Sonographic evaluation of the area of clinical concern left inguinal canal demonstrated inguinal lymph nodes measuring 0.9 x 0.5 x 0.7 cm and 0.8 x 0.7 x 0.4 cm with central flow and no cortical disruption. 1.6 cm hernia defect is also present Impression: Probable reactive left inguinal lymph nodes follow-up until resolution. 1.6 cm left inguinal hernial defect present This document has been electronically signed by: Farrukh Valdez MD on 08/15/2024 08:58:36
--- OUTSIDE RECORDS SUMMARY | 2024-08-14 15:21 | XMS_ITS | Continuity of Care Document ---
Author Name [facility] Organization [facility] Care Team Providers Care Advertising Columnist Name Role Phone [facility] Unavailable Unavailable Problems Combined list of problems from Department of Defense and Veterans Affairs facilities. It does not include entries that were removed or entered in error. Problem Status Onset Date Problem Type Date of Resolution Comments Source Anxiety Active Condition [facility] benzodiazepine use chronic Active Condition Feb 18, 2013 Entered By: CASIMIRO HARRY Comment: February 18, 2013-mass Rx program-no controlled Rx [facility] Bilateral hearing loss Active Condition [facility] Depressive Disorder NOS Active Condition [facility] Essential hypertension Active Condition [facility] Gastroesophageal reflux disease Active Condition [facility] Hearing loss Active Condition [place] History of colonoscopy Active Condition Jun 29, 2014 Entered By: CLAUS MATTHEWS Comment: 2009 and was normal;Jul 29, 2015 Entered By: HARMEET DEL RIO Comment: Last colonoscopy was in 2015- was normal, repeat 5 years [facility] History of malignant melanoma of the skin Active Condition Apr 13, 2011 Entered By: SUSANA ESTRADA Comment: 2006: Left Ear lobe & ChestMar 2015 Entered By: HARMEET DEL RIO Comment: Patient examined by Dr. Larson annually. [place] Impotence of organic origin Active Condition [place] [facility] left axis deviation Active Condition [facility] Obesity Active Condition [facility] Osteoarthritis Active Condition Apr Entered By: SUSANA ESTRADA Comment: Voltaren Gel 1 % BID [facility] PCP: Marcy Castle MD Active Condition [facility] Personal History of Colonic Polyps Active Condition Apr 13, 2011 Entered By: SUSANA ESTRADA Comment: 1998: Tubular Adenoma PolypsDe2010 Entered By: SUSANA ESTRADA Comment: 2009: Normal Colonoscopy [facility] Tinnitus Active Condition [facility] 04-13-11: NSR 64bpm [place]:186ms QRS:120ms QT:436 Inactive Condition 07/29/2015 Apr 14, 2011 Entered By: SUSANA ESTRADA Comment: Nonspecific IVCD [facility] Atypical Chest Pain Inactive Condition 07/29/2015 [facility] Carpal Tunnel Syndrome Inactive Condition 07/29/2015 Apr 13, 2011 Entered By: SUSANA ESTRADA Comment: Rt Wrist Synovitis [facility] Elevated blood pressure reading without diagnosis of hypertension Inactive Condition 07/29/2015 [facility] Elevated Prostate Specific antigen [psa] Inactive Condition 07/29/2015 Apr 13, 2011 Entered By: SUSANA ESTRADA Comment: 2005: Neg Bx Dr Marco A Grace MD [facility] Essential Hypertension Inactive Condition 04/13/2011 [facility] Insomnia, unspecified Inactive Condition 07/29/2015 [facility] Other dyspnea and respiratory abnormality (ICD-9-CM 786.09) Inactive Condition 07/29/2015 [facility] Vitamin D Deficiency Inactive Condition 07/29/2015 [facility] Diagnosis: ICD-10-CM Z46.1 Encounter for fitting and adjustment of hearing aid Active Diagnosis [facility] Diagnosis: ICD-10-CM Z46.0 Encounter for fit/adjst of spectacles and contact lenses Active Diagnosis [facility] Diagnosis: ICD-10-CM Z96.1 Presence of intraocular lens Active Diagnosis [facility] Diagnosis: ICD-10-CM H90.3 Sensorineural hearing loss, bilateral Active Diagnosis [facility] Medications Combined list of outpatient medications from Department of Defense and Veterans Affairs facilities.Medications provided include 1) outpatient medications from the last 15 months, and 2) patient-reported medications. Medication Details Route Status Patient Instructions Prescription Expires Prescription Number Last Dispense Date Ordering Provider Order Date Order Qty Source ALPRAZOLAM 1MG TAB,SA TAKE ONE TABLET BY MOUTH DAILY ORAL ACTIVE MAIDA MATTHEWS 2014 [place] BUPROPION HCL 300MG 24HR TAB,SA TAKE ONE TABLET BY MOUTH DAILY ORAL ACTIVE Charles DEL RIO 2015 [place] HYDROCHLORO THIAZIDE 25MG TAB TAKE ONE-HALF TABLET BY MOUTH DAILY ORAL ACTIVE Charles DEL RIO 03/24/ 2016 [place] OMEPRAZOLE 20MG CAP,EC TAKE 2 CAPSULES BY MOUTH EVERY MORNING 30 MINUTES BEFORE BREAKFAS T ORAL ACTIVE Charles DEL RIO 2015 [place] OTHER CAP/TAB VOLTAREN 1 % TOPICAL TWICE DAILY NEEDED ACTIVE KAYLIN CROWELL 2010 [place] VALSARTAN 160MG TAB TAKE ONE TABLET BY MOUTH DAILY ORAL ACTIVE Charles DEL RIO 2015 [place] Immunizations Combined list of available immunizations from the Department of Defense and Veterans Affairs facilities. Immunization Series Date Given Administered By Site Reaction Lot Number CVX Code Drug [facility] Operator Status Comments Source FLU,3 YRS (HISTORICAL) 2012 88 complet ed Site: Right Deltoid [facility] PNEUMOCOCCAL, UNSPECIFIED FORMULATION 2012 109 complet ed [place] ZOSTER LIVE [address] [facility] TD(ADULT) UNSPECIFIED FORMULATION 2010 139 complet ed [facility] Encounters Combined list of: 1) Encounters from Department of Veterans Affairs facilities going backup to the last 18 months, not all [place] inpatient encounters are included; 2) Encounters from the Department of [facility] facilities going backup to 280 months. Location Location Details Encounter Type Encounter Number Reason For Visit Attending Provider ADM Date DC Date Status Disposition Source [facility] [place] [facility] Outpatient Encounter [id number] 04/16 [place] [facility] [place] [facility] [place] [facility] HEARING AID REPAIR/MOD IFYING [id number] Diagnos is: ICD-10- CM H90.3 Sensori neural hearing loss, JULIAN Lamar 06/12 [place] [facility] [place] [facility] [place] [facility] HEARING SERVICE [id number] Diagnos is: ICD-10- CM Z46.1 Encount er for fitting and adjustm ent of hearing aid Wayne LEON 07/09 [place] [facility] [place] [facility] [place] [facility] Outpatient Encounter [id number] 07/09 [facility] [place] [place] [id number] Diagnos is: ICD-10- CM Z96.1 Presenc e of intraoc ular lens KATERINA,ALFREDO H B 11/28 [facility] FIT SPECTACLES MULTIFOCAL [id number] Diagnos is: ICD-10- CM Z46.0 Encount er for fit/adj st of spectac les and contact lenses KATERINA,ALFREDO H B 11/28 [facility] [place] [facility] HEARING AID FITTING/CH ECKING [id number] Diagnos is: ICD-10- CM Z46.1 Encount er for fitting and adjustm ent of hearing aid Wayne LEON E 06/12 [place] [facility] [place] [facility] Social History Combined list of available smoking, tobacco, and other social history from Department of Defense and Veterans Affairs facilities. Social History Type Response Date Comment Sour e Tobacco smoking status [facility] LIFETIME NON-TOBACCO USER 07/05 [facility] History of tobacco use LIFETIME NON-TOBACCO USER 1 [facility] Plan of Care List of future care activities from Department of Veterans Affairs facilities. Additional future care activities may be listed in the Assessment and Plan section. Date/Time Care Activity Care Activity Detail Facili ty 12/04/2024 AMBULATORY - MEDICINE AMBULATORY - MEDICI [place] [facility] [place] [facility]
== END 2024-08-14 12:49 | disposition home or self-care (01) ==
LOC: HO.US 12:48
PROVIDERS: PCP Internal Medicine; Visit Provider Internal Medicine
DX: K40.90 Unilateral inguinal hernia, without obstruction or gangrene, not specified as recurrent (principal)
CPT/HCPCS: 76857

== ENCOUNTER → 2024-08-14 12:50 | Outpatient (BNV) | payer MEDICARE, SELFPAY | PROVIDERS: PCP Internal Medicine; Visit Provider Radiology Diagnostic Radiology | DX: K40.90 Unilateral inguinal hernia, without obstruction or gangrene, not specified as recurrent (principal) | CPT/HCPCS: 76857 ==

== ENCOUNTER 2024-11-25 09:48 | Outpatient (AMB) | payer OTHER, SELFPAY ==
--- OUTSIDE RECORDS SUMMARY | 2024-11-25 05:33 | XMS_ITS | Continuity of Care Document ---
Author Name [facility] Organization [facility] Care Team Providers Care Gallery Host Name Role Phone [facility] Unavailable Unavailable Problems Combined list of problems from Department of Defense and Veterans Affairs facilities. It does not include entries that were removed or entered in error. Problem Status Onset Date Problem Type Date of Resolution Comments Source Anxiety Active Condition [place] benzodiazepine use chronic Active Condition Feb 18, 2013 Entered By: CASIMIRO HARRY Comment: February 18, 2013-mass Rx program-no controlled Rx [facility] Bilateral hearing loss Active Condition [place] Depressive Disorder NOS Active Condition [facility] Essential hypertension Active Condition [facility] Gastroesophageal reflux disease Active Condition [facility] Hearing loss Active Condition [facility] History of colonoscopy Active Condition Jun 29, 2014 Entered By: CLAUS MATTHEWS Comment: 2009 and was normal;Jul 29, 2015 Entered By: HARMEET DEL RIO Comment: Last colonoscopy was in 2015- was normal, repeat 5 years [facility] History of malignant melanoma of the skin Active Condition Apr 13, 2011 Entered By: SUSANA ESTRADA Comment: 2006: Left Ear lobe & ChestMar 2015 Entered By: HARMEET DEL RIO Comment: Patient examined by Dr. Larson annually. [place] Impotence of organic origin Active Condition [facility] left axis deviation Active Condition [facility] Obesity Active Condition [place] Osteoarthritis Active Condition Apr Entered By: SUSANA ESTRADA Comment: Voltaren Gel 1 % BID [place] PCP: Marcy Castle MD Active Condition [facility] Personal History of Colonic Polyps Active Condition Apr 13, 2011 Entered By: SUSANA ESTRADA Comment: 1998: Tubular Adenoma PolypsDe2010 Entered By: SUSANA ESTRADA Comment: 2009: Normal Colonoscopy [place] Tinnitus Active Condition [facility] 04-13-11: NSR 64bpm AL:186ms QRS:120ms QT:436 Inactive Condition 07/29/2015 Apr 14, 2011 Entered By: SUSANA ESTRADA Comment: Nonspecific IVCD [place] Atypical Chest Pain Inactive Condition 07/29/2015 [facility] Carpal Tunnel Syndrome Inactive Condition 07/29/2015 Apr 13, 2011 Entered By: SUSANA ESTRADA Comment: Rt Wrist Synovitis [place] Elevated blood pressure reading without diagnosis of hypertension Inactive Condition 07[facility]29[facility] Prostate Specific antigen [psa] Inactive Condition 07/29/2015 Apr 13, 2011 Entered By: SUSANA ESTRADA Comment: 2005: Neg Bx Dr Marco A Grace MD [place] Essential Hypertension Inactive Condition 04/13/2011 [place] Insomnia, unspecified Inactive Condition 07/29/2015 [place] Other dyspnea and respiratory abnormality (ICD-9-CM 786.09) Inactive Condition 07/29/2015 [facility] Vitamin D Deficiency Inactive Condition 07/29/2015 [place] Diagnosis: ICD-10-CM Z46.1 Encounter for fitting and [...] Site Reaction Lot Number CVX Code Drug Promotion Writer Status Comments Source FLU,3 YRS (HISTORICAL) 2012 88 complet ed Site: Right Deltoid [facility] I[facility] PNEUMOCOCCAL, UNSPECIFIED FORMULATION 2012 109 complet ed [facility] ZOSTER LIVE 2012 121 complet ed [facility] I[facility] TD(ADULT) UNSPECIFIED FORMULATION 2010 139 complet [facility] Encounters Combined list of: 1) Encounters from Department of Veterans Affairs facilities going backup to the last 18 months, not all [place] inpatient encounters are included; 2) Encounters from the Department of [facility] facilities going backup to 280 months. Location Location Details Encounter Type Encounter Number Reason For Visit Attending Provider ADM Date DC Date Status Disposition Source [facility] [place] [facility] HEARING AID REPAIR/MOD IFYING [id number] Diagnos is: ICD-10- CM H90.3 Sensori neural hearing loss, JUL[facility]ar [facility] [id number] Diagnos is: ICD-10- CM Z46.1 Encount er for fitting and adjustm ent of hearing aid Wayne LEON 07/09 [place] [facility] [facility] [place] [facility] Outpatient Encounter [id number] 07/09 [facility] [place] [facility] COMPRE OPH EXAM EST PT 1/> [id number] Diagnos is: ICD-10- CM Z96.1 Presenc e of intraoc ular lens ALFREDO BORGES H B 11/[address] [facility] [place] FIT SPECTACLES MULTIFOCAL [id number] Diagnos is: ICD-10- CM Z46.0 Encount er for fit/adj st of spectac les and contact lenses ALFREDO BORGES H B 11/[address] [facility] [place] HEARING AID FITTING/CH ECKING [id number] Diagnos is: ICD-10- CM Z46.1 Encount er for fitting and adjustm ent of hearing aid Wayne LEON E 06/12 [place] [facility] [place] [facility] [facility] Social History Combined list of available smoking, tobacco, and other social history from Department of Defense and Veterans Affairs facilities. Social History Type Response Date Comment Sourc e Tobacco smoking status [facility] LIFETIME NON-TOBACCO USER 07/05 [facility] History of tobacco use LIFETIME NON-TOBACCO USER 1 [facility] Plan of Care List of future care activities from Department of Veterans Affairs facilities. Additional future care activities may be listed in the Assessment and Plan section. Date/Time Care Activity Care Activity Detail Facili ty 12/04/2024 AMBULATORY - MEDICINE AM[place]ULATORY [place] [facility] [place] [facility]
[2024-11-25 09:55] VITALS: BP 112/60; PULSE 42; O2SAT 97; BMI 33.5
--- NOTE | 2024-11-25 09:55 | MHC.PC.OV ---
Vital Signs 11/25/24 09:55 Height 5 ft 11 in Weight 240 lb 4 oz BMI 33.5 BP 112/60 Blood Pressure Location Lt brachial Position Sitting Pulse 42 L Pulse Source Pulse Oximeter Pulse Oximetry (%) 97 Oxygen Delivery Method Room Air Intake Visit Reasons: [facility] f/u Valve Tester Required: No Accompanied by: Self / Same As Patient Allergies No Known Drug Allergies Allergy (Unknown, Verified 11/25/24 10:37) Unknown Medication List - Last Reconciled 11/25/24 by Prudencio Hwang MD alprazolam ER 1 mg PO QAM PRN 90 days bupropion HCl XL 300 mg PO DAILY 90 days mirtazapine 15 mg PO BEDTIME 90 days omeprazole 40 mg PO DAILY 90 days valsartan-hydrochlorothiazide 160-12.5 mg 1 tab PO DAILY 90 days Tobacco use date assessed: 11/25/24 Fall risk assessment: No Falls in past year Last assessed Fall Risk: 11/25/24 Dental Screening Dental Screen Date: 11/25/24 Did you have a dental visit in the last 12 months?: Yes Did you have a dental problem in the last 6 months where you did not have access to dental care?: No Was dental information given to patient?: Patient has dentist HPI [facility] HPI Details Patient comes in today for his follow up visit States that he feels okay He denies any headaches or dizziness Denies any chest pains, no SOB No nausea/vomiting, no abdominal pain No change in bowel habits noted Needs a couple of his Rx refilled He has no follow up labs done recently [facility] Medical History (Updated 11/25/24 @ 12:38 by Prudencio Hwang MD) Left inguinal hernia Obesity (BMI 30-39.9) Melanoma Depression Anxiety GERD without esophagitis Achilles tendinosis of right lower extremity Degenerative arthritis of right knee Vitamin D deficiency Benign essential hypertension Surgical History H/O right knee surgery History of cataract surgery Family History Mother No problems noted. Father No problems noted. Social History Housing: Condominium Alcohol intake: current Alcohol intake frequency: a few times a month Patient Tobacco Use Status: Never used Tobacco e-Cigarette/Vaping Use: Never Used Second Hand Smoke Exposure: Yes service: No Current occupational status: retired Cognitive needs: No Hearing needs: Yes Vision needs: Yes Questionnaire PHQ-9 Over the last 2 weeks, how often have you been bothered by any of the following problems? 1. Little interest or pleasure in doing things: nearly every day 2. Feeling down, depressed, or hopeless: more than half the days 3. Trouble falling or staying asleep, or sleeping too much: not at all 4. Feeling tired or having little energy: not at all 5. Poor appetite or overeating: not at all 6. Feeling bad about yourself - or that you are a failure or have let yourself or your family down: more than half the days 7. Trouble concentrating on things, such as reading the newspaper or watching television: not at all 8. Moving or speaking so slowly that other people could have noticed. Or the opposite - being so fidgety or restless that you have been moving around a lot more than usual: not at all 9. Thoughts that you would be better off or of hurting yourself in some way: not at all Total score: 7 Depression Screening Interpretation: Positive Depression Screening Follow-up: Existing condition and In treatment Depression Screening Done: Yes 01938 - PHQ-9 Billing: Yes Source: Developed by Drs. Marco A Werner, Adelaida Davis, Jero Patiño and colleagues, with an educational colette from [employer]. Thrive Questionnaire Date Thrive assessed: 11/25/24 I am a: Patient What is your living situation today?: I have a steady place to live Within the past 12 months, did the food you bought not last and you didn't have the money to get more?: Never true Within the past 12 months, did you worry whether your food would run out before you got money to buy more?: Never true Do you have trouble paying for medicines?: No Do you have trouble getting transportation to medical appointments?: No Do you have trouble paying your heating and electricity bill?: No Do you have trouble taking care of your child, family member or friend?: No Do you have trouble with day-to-day activities such as bathing, preparing meals, shopping, managing finances, etc.?: No Are you currently unemployed and looking for a job?: No Are you interested in more education?: No Please select the resources that you would like help with: None Currently or been in a relationship where the following occur: I choose not to answer THRIVE Score: 0 AUDIT C Alcohol Use Questionnaire (AUDIT-C) 1. How often do you have a drink containing alcohol?: 4 or more times a week 2. How many drinks containing alcohol do you have on a typical day when you are drinking?: 3 or 4 3. How often do you have six or more drinks on one occasion?: Weekly Total Score: 8 Score Reviewed/Action Taken: Yes KINJAL-7 AMB Questionnaire KINJAL-7 Date KINJAL - 7 assessed: 11/25/24 Feeling nervous, anxious, or on edge: 2 = More than half the days Not being able to stop or control worryin = Not at all Worrying too much about different things: 2 = More than half the days Trouble relaxin = Not at all Being so restless that it is hard to sit still: 0 = Not at all Becoming easily annoyed or irritable: 0 = Not at all Feeling afraid as if something awful might happen: 0 = Not at all Total KINJAL-7 score (0-4 normal; 5-9 mild; 10-14 moderate; 15-21 severe): 4 Source: Developed by Drs. Marco A Werner, Adelaida Davis, Jero Patiño and colleagues, with an educational colette from [employer]. Review of Systems Const Denies chills, Denies fatigue, Denies fever(s) and Denies headache(s) ENT Denies dysphagia, Denies dizziness, Denies otalgia, Denies headache(s), Denies neck pain, Denies odynophagia and Denies sore throat Card Denies chest pain, Denies palpitations and Denies dyspnea Resp Denies cough and Denies dyspnea GI Denies abdominal pain, Denies constipation, Denies dysphagia, Denies heartburn, Denies diarrhea, Denies loose stools, Denies nausea, Denies odynophagia and Denies vomiting Details: (+) palpable mass over the left suprapubic area for a few weeks - mass reportedly resolved about 2 weeks ago and has not recurred since Denies dysuria, Denies nocturia and Denies urinary frequency Musc Denies back pain and Denies neck pain Skin/Breast Denies rash Neuro Denies dizziness and Denies headache(s) Psych Reports depression (Rx helping) Endo Denies fatigue and Denies palpitations Physical exam (Primary Care) Vital Signs: Last Vital Signs Pulse 42 L 11/25/24 09:55 BP 112/60 11/25/24 09:55 Pulse Ox 97 11/25/24 09:55 Oxygen Delivery Method Room Air 11/25/24 09:55 BMI result Body Mass Index 33.5 Tobacco/Smoking Status: Tobacco use Status Tobacco use date assessed 11/25/24 11/25/24 10:00 Patient Tobacco Use Status Never used Tobacco 11/25/24 10:00 e-Cigarette/Vaping Use Never Used 11/25/24 10:00 PHQ-9: PHQ-9 Score PHQ-9: Total score 7 11/25/24 10:00 Depression Screening Interpretation: Positive Depression Screening Follow-up: Existing condition and In treatment Thrive Assessment: Date of Thrive Assessment Date Thrive assessed 11/25/24 11/25/24 10:00 Currently or been in a relationship where the following occur: I choose not to answer Const General: no acute distress and alert HENMT Ears: TM's normal bilaterally and EAC's normal Throat: Yes posterior oropharynx normal and Yes tonsils normal (no TP congestion) Neck Neck: Yes supple and No lymphadenopathy Thyroid: Thyroid normal Resp Auscultation: clear to auscultation bilaterally, no rales and no wheezes Cardio Rate: bradycardic Rhythm: regular rhythm Heart sounds: Murmur heart sound present systolic soft, II/ and at the right sternal border GI Palpation (GI): Soft to palpation, nontender and no masses (no masses palpable on exam today, including over the L suprapubic area) Auscultation: normal bowel sounds General: Yes no CVA tenderness Back/Spine/Pelvis Back: no CVA tenderness Thoracic/Lumbar Spine: No lumbar spinal tenderness Skin Rashes: no rashes Extrem General: Yes no clubbing, cyanosis or edema Coding Level of Care Code Est Pt Level 4 (49868) Diagnoses Bradycardia R00.1 Cardiac murmur R01.1 Benign essential hypertension I10 GERD without esophagitis K21.9 Left inguinal hernia K40.90 Vitamin D deficiency E55.9 Anxiety F41.9 Episode of recurrent major depressive disorder, unspecified depression episode severity F33.9 Depression Type: major depressive disorder Major depression recurrence: recurrent Active/Remission status: currently active Major depression episode severity: unspecified Obesity (BMI 30-39.9) E66.9 Additional Codes PHQ-9 - 23856 - PHQ-9 Billing: Yes ([id number]) Assessment & Plan Assessment & Plan (1) Bradycardia: Code(s): R00.1 - Bradycardia, unspecified Category: Medical Plan: Patient continues to present with bradycardia, with HR of around 52 bpm today His heart rate was again confirmed to be in the upper 40's on direct palpation of his radial pulse for a full minute; cardiac rhythm appears to be normal on chest auscultation, with no apparent skipped beats noted He states that he's had no recent symptoms of dizziness, orthostasis or increased /unexplained fatigue He denies any increased SOB or KIRK; denies any chest pains He's had no cardiac tests or procedures done in the past 20 years - previous EKG and echocardiogram were done in the when he was still with Dr. Marcy Rock as his PCP He was send for a 12-lead EKG for further evaluation at his last visit and EKG showed sinus bradycardia with 1st degree AV block, LAD, RBBB, with no acute ST-T wave changes He was also sent for an echocardiogram for further evaluation of his cardiac murmur - it is unclear at this time whether this was actually done as patient states that he cannot remember and we have not received a report on this so far Will have office staff look into this further (2) Cardiac murmur: Code(s): R01.1 - Cardiac murmur, unspecified Category: Medical Plan: He has a soft systolic murmur noted on auscultation, more noticeable at the upper right sternal border suggestive of an aortic stenosis murmur He was sent for an echocardiogram for further evaluation - patient requested to have this done at [facility] as it is closer to home and more convenient for him We have not yet received a report on this so far and we will have our office staff reach out to [facility] to see if this was ever done and get his report sent over [facility] for review if it is available (3) Benign essential hypertension: Code(s): I10 - Essential (primary) hypertension Category: Medical Plan: Reinforced low sodium diet - goal is systolic BP of at least 140 mm or less Continue Valsartan-HCT 160-12.5 mg QD Will have patient recheck his labs in 4 months for follow up (4) GERD without esophagitis: Code(s): K21.9 - Gastro-esophageal reflux disease without esophagitis Category: Medical Plan: Dietary restrictions reinforced Continue Omeprazole 40 mg QD Follow up with GI as scheduled Patient had a Cologuard test done in 2022 that came out negative (5) Left inguinal hernia: Code(s): K40.90 - Unilateral inguinal hernia, without obstruction or gangrene, not specified as recurrent Category: Medical Plan: Pelvic US done in August 2024 revealed (+) 1.6 cm left inguinal hernial defect He was seen by surgery at [facility] a couple of months ago (September 2024) and as patient did indicate that he prefers not to have any surgery done if it can be avoided and as he currently does not really have much in terms of symptoms and given the small size of the hernia, will continue with watchful waiting/continued observation for now (6) Vitamin D deficiency: Code(s): E55.9 - Vitamin D deficiency, unspecified Category: Medical Plan: Continue OTC Vitamin D3 2000 units QD (7) Anxiety: Code(s): F41.9 - Anxiety disorder, unspecified Category: Medical Plan: Continue Alprazolam ER 1 mg Q AM PRN and Bupropion XL 300 mg Q AM (8) Depression: Code(s): F32.A - Depression, unspecified Category: Medical Qualifiers: Depression Type: major depressive disorder Major depression recurrence: recurrent Active/Remission status: currently active Major depression episode severity: unspecified Qualified Code(s): F33.9 - Major depressive disorder, recurrent, unspecified Plan: Continue Bupropion XL 300 mg Q AM and Mirtazapine 15 mg Q HS Follow up with psychiatry as scheduled (9) Obesity (BMI 30-39.9): Code(s): E66.9 - Obesity, unspecified Category: Medical Plan: Reinforced diet; exercise and weight loss may not be realistic given patient's age and comorbidities Plan Follow up in 4 months Orders: Orders Lipid Panel 4 Months E78.00 - Pure hypercholesterolemia, unspecified UA CC w/rflx Micro + Cult 4 Months R30.0 - Dysuria Complete Blood Count Auto Diff 4 Months D64.9 - Anemia, unspecified Comprehensive [place]. Panel Fast 4 Months E78.00 - Pure hypercholesterolemia, unspecified TSH reflex Free T4 4 Months E78.00 - Pure hypercholesterolemia, unspecified Vitamin D 25-OH Total 4 Months E55.9 - Vitamin D deficiency, unspecified Vitamin B12 and Folate 4 Months E53.8 - Deficiency of other specified B group vitamins Medications: Refilled alprazolam ER 1 mg PO QAM PRN 90 tabs 1RF anxiety 90 days F41.9 - Anxiety disorder, unspecified mirtazapine 15 mg PO BEDTIME 90 tabs 3RF 90 days F32.A - Depression, unspecified
--- OUTSIDE RECORDS SUMMARY | 2024-11-25 10:35 | XMS_ITS | Data Portability ---
Author Organization [facility] [address] Address [address] [place] [address] Assessment Encounter Date Assessment Date Assessment LastModified by Organization Details LastModified Time 08/27/2023 08/27/2023 you are being treated for wax to your ears your ears were cleaned out, was was removed Please use debrox drops to keep your ears clean you were examined and there is no object noted in your ear Please seek care if you have any concerning ear pain chris Not available 08/27/2023 15:56:22 Plan of Treatment Reminders Order Date Submit Date Provider Last Modified By Organization Details Last Modified Time Details Appointments None recorded. Lab None recorded. Referral None recorded. Procedures cerumen removal (PROC) 0[address] [place] [facility], [address] [place], [address], 17:40:06 Surgeries None recorded. Imaging None recorded. Medication Orders Debrox 6.5 % ear drops [address] [place] [id number], [address], [phone], 15:56:34 Patient TargetsNo targets recorded. Patient Instructions Encounter Date Encounter Id Patient Instructions Last Modified By Organization Details Last Modified Time 08/27/2023 [id number] hearing loss: care instructions chris Not available 08/27/2023 15:56:23 Reason for Referral None Reported. Results Created Date Observation Date Name Description Value Unit Range Abnormal Flag Note LastModifiedBy Organization Detail LastModifiedTime Result Notes None recorded. Problems Name Problem SNOMED Code Status Onset Date Resolution Date Notes Provider Name and Address Organization Details Recorded Time Anxiety 11668380 Active Demetrice Proctor alexander, [place] - [facility] 4 15:27:00 Acid reflux 094179971 Active Demetrice munoz, PA - [facility] 4 15:27:07 Hypertensiv e disorder 42493929 Active Demetrice Proctor alexander, PA - [facility] 4 15:27:21 Depressive disorder 37427132 Active Demetrice munoz, PA - [facility] 4 15:27:33 Impacted cerumen of bilateral ears 5850234521769 108 Active 2023 JARRELL MATTA NP [address] [place], [address] [facility] PA - [facility] 4 15:37:25 Problem Notes None recorded. Procedures Surgical History Date Name Laterality Status Provider Name and Address Organization Details Recorded Time Cerumen Removal by Irrigation completed Demetrice Kirbyley PA - [facility] 08/27/2023 15:57:44 Imaging Results None recorded. Procedure Notes None recorded. Medical Equipment None Reported. Allergies No known drug allergies Medications Name Sig Start Date Stop Date Status Note LastModified by Organization Details LastModified Time Lidocaine Viscous 2 % mucosal solution RINSE AND GARGLE 5 ML BY MOUTH THREE TIMES DAILY BEFORE MEALS AND AT BEDTIME FOR 7 DAYS NEEDED FOR MOUTH SORE PAIN 08/26 completed Not Available Not Available Not Available valsartan 160 mg-hydrochl orothiazide 12.5 mg tablet TAKE 1 TABLET BY MOUTH DAILY active Not Available Not Available No t Available Debrox 6.5 % ear drops INSTILL 5 DROPS INTO AFFECTED EAR(S) BY OTIC ROUTE 2 TIMES PER DAY 2023 active Not Available Not Available Not Avai lable omeprazole 40 mg capsule,del ayed release TAKE 1 CAPSULE BY MOUTH DAILY active Not Available Not Available No t Available mirtazapine 15 mg tablet TAKE 1 TABLET BY MOUTH AT BEDTIME active Not Available Not Available No t Available alprazolam ER 1 mg tablet,exte nded release 24 hr TAKE 1 TABLET BY MOUTH EVERY MORNING NEEDED FOR ANXIETY active Not Available Not Available No t Available bupropion HCl XL 300 mg 24 hr tablet, extended release TAKE 1 TABLET BY MOUTH DAILY active Not Available Not Available No t Available Paxlovid 300 mg (150 mg x 2)-100 mg tablets in a dose pack TK 2 NIRMATREL VIR TS AND 1 RITONAVIR T TOGETHER PO BID FOR 5 DAYS 08/26 completed Not Available Not Available Not Available Vitals Date Recorded Body height Body weight Oxygen saturation Oxygen saturation in Arterial blood by Pulse oximetry Heart rate Respiratory rate Systolic And Diastolic Provider Name and Address Organization Details Last Updated DateTime 4 180.34 cm 589238. 25 g 96 % 96 % 80 /min 16 /min 172/92 mm[Hg] Demetrice ROSENBAUM - [facility] 4 15:30:14 Social History None recorded. Functional Status Question Answer Note LastModified by Organizat ion Details LastModified Time Do you use any illicit or recreational drugs? No [email or web address] Information not available 08/27/2023 What is your level of alcohol consumption? Occasional Information not available 08/27/2023 Mental Status None recorded. Family History Nothing Reported. Medical History No medical history recorded. Past Encounters Encounter ID Performer Location Encounter Start Date Encounter Closed Date Diagnosis/Indication Diagnosis SNOMED-CT Code Diagnosis ICD10 Code Diagnosis Note [id number] [facility] [address] [address] 11/15/2017 09:50:09 11/15/2017 10:24:25 [id number] JARRELL MATTA NP [address] [address] 08/27/2023 15:19:50 08/27/2023 15:57:57 Anxiety 25768197 F41.9 Impacted c erumen of bilateral ears 2701279365 008967 H61.23 Health Concerns Section Related Observation LastModified by Organization Detai ls LastModified Time None Recorded Concern Status LastModified by Organization Details LastModified Time None Recorded Advance Directives Directive None Recorded Payers Insurance Date Sequence Insurance Name Policy Number Policy Barry Covered Member ID Barry Member ID Guarantor Name 08/27/2023 1 [facility] [employer] [facility] (MEDICAID H[facility]) [id number] Jose Enrique Barbosa Jose Alejandro [id number] Jose Enrique Jose Alejandro Notes Date Note Type Note Provider Name and Address Organization Details Recorded Time 08/27/2023 text/html Ear Pain Brief HPIReported bypatient.Location :Pt has hearing aides noticed that right ear piece was missing and thinks it may be stuck in the right ear No h\change in hearing, patient has hx of hearing loss at [place] no foreign body sensation to the bilateral ears Onset/Timing:sudde n onset Quality:no itching; no discharge from the ears; no burning Severity:no fever Context:no recent URI; no recent ear infection; no recent swimming Associated Symptoms:no cough; no jaw popping or clicking; no discharge from ear; no nasal congestion; no nasal discharge; no sense of fullness; no sore throat; no jaw pain; no tinnitus; no decreased hearing JARRELL MATTA NP [address] [place], [address], [place] - [facility] 08/27/2023 15:58:00
--- OUTSIDE RECORDS SUMMARY | 2024-11-25 10:35 | XMS_ITS | Patient Health Record ---
Author Organization [facility] Address [address] [facility] [address] [place] [address] Care Team Providers Care Automotive Service Porter Name Role Phone Marco A Alvarez Unavailable [phone] Reason For Referral No Information Plan Of Treatment No Information
== END 2024-11-25 10:44 | disposition home or self-care (01) ==
LOC: HO.HMCH 09:49
PROVIDERS: PCP Internal Medicine; Visit Provider Internal Medicine
DX: R00.1 Bradycardia, unspecified (principal); R01.1 Cardiac murmur, unspecified; E66.9 Obesity, unspecified; Z68.33 Body mass index [BMI] 33.0-33.9, adult; I10 Essential (primary) hypertension; K21.9 Gastro-esophageal reflux disease without esophagitis; K40.90 Unilateral inguinal hernia, without obstruction or gangrene, not specified as recurrent; E55.9 Vitamin D deficiency, unspecified; F41.9 Anxiety disorder, unspecified; F33.9 Major depressive disorder, recurrent, unspecified

== ENCOUNTER → 2024-11-25 09:48 | Outpatient (BNVA) | payer OTHER, SELFPAY | PROVIDERS: PCP Internal Medicine; Visit Provider Internal Medicine | DX: I10 Essential (primary) hypertension (principal); R00.1 Bradycardia, unspecified; R01.1 Cardiac murmur, unspecified; K21.9 Gastro-esophageal reflux disease without esophagitis; K40.90 Unilateral inguinal hernia, without obstruction or gangrene, not specified as recurrent; E55.9 Vitamin D deficiency, unspecified; F41.9 Anxiety disorder, unspecified; F33.9 Major depressive disorder, recurrent, unspecified; E66.9 Obesity, unspecified; Z68.33 Body mass index [BMI] 33.0-33.9, adult | CPT/HCPCS: 96127 ==

== ENCOUNTER 2025-03-17 08:35 | Outpatient (REF) | payer OTHER, SELFPAY ==
--- OUTSIDE RECORDS SUMMARY | 2025-03-17 08:45 | XMS_ITS | Data Portability ---
Author Organization [facility] Address [address] [place] [address] Assessment Encounter Date Assessment Date Assessment LastModified [...] None recorded. Procedures cerumen removal (PROC) 024 [place] [facility], [address] [place], [address], 17:40:06 Surgeries None recorded. Imaging None recorded. Medication Orders Debrox 6.5 % ear drops 024 [place] [facility][id number], [address], [phone], 15:56:34 Patient TargetsNo targets recorded. Patient Instructions Encounter Date Encounter Id Patient Instructions Last Modified By Organization Details Last Modified Time 08/27/2023 [id number] hearing loss: care instructions chris Not available 08/27/2023 15:56:23 Reason for Referral None Reported. Results Created Date Observation Date Name Description Value Unit Range Abnormal Flag Note LastModifiedBy Organization Detail LastModifiedTime Result Notes None recorded. Problems Name Problem SNOMED Code Status Onset Date Resolution Date Notes Provider Name and Address Organization Details Recorded Time Anxiety 24309906 Active Demetrice Proctor alexander, PA - [facility] 4 15:27:00 Acid reflux 498347220 Active Demetrice munoz, PA - [facility] 4 15:27:07 Hypertensiv e disorder 73549627 Active Demetrice Proctor alexander, PA - [facility] 4 15:27:21 Depressive disorder 22141119 Active Demetrice munoz, PA - [facility] 4 15:27:33 Impacted cerumen of bilateral ears 2001170308191 108 Active 2023 JARRELL MATTA NP [address] [place], [address] [facility] PA - [facility] 4 15:37:25 [...] Details Last Updated DateTime 4 180.34 cm 259312. 25 g 96 % 96 % 80 /min 16 /min 172/92 mm[Hg] Demetrice ROSENBAUM - [facility] 4 15:30:14 Social History None recorded. Functional Status Question Answer Note LastModified by Organizat ion Details LastModified Time Do you use any illicit or recreational drugs? No [email or web address] Information not available 08/27/2023 What is your level of alcohol consumption? Occasional [email or web address] Information not available 08/27/2023 Mental Status None recorded. Family History Nothing Reported. Medical History No medical history recorded. Past Encounters Encounter ID Performer Location Encounter Start Date Encounter Closed Date Diagnosis/Indication Diagnosis SNOMED-CT Code Diagnosis ICD10 Code Diagnosis IMO Codes Diagnosis Note [id number] _[facility] [address] [address] 11/15/2017 09:50:09 11/15/2017 10:24:25 [id number] JARRELL MATTA NP _[address] [address] 08/27/2023 15:19:50 08/27/2023 15:57:57 Anxiety 30754699 F41.9 Impacted c erumen of bilateral ears 5193580373 593539 H61.23 Health Concerns Section Related Observation LastModified by Organization Detai ls LastModified Time None Recorded Concern Status LastModified by Organization Details LastModified Time None Recorded Advance Directives Directive None Recorded Payers Insurance Date Sequence Insurance Name Policy Number Policy Barry Covered Member ID Barry Member ID Guarantor Name 08/27/[address] [place] [address] [employer] (MEDICAID HMO) [id number] Jose Enrique Blount [id number] Jose Enrique Blount Notes Date Note Type Note Provider Name and Address Organization Details Recorded Time 08/27/2023 text/html Ear Pain Brief HPIReported by PatientHPIFor onset/timing, patient reportssudden onset. For quality, patient reportsno itching,no discharge from the ears, andno burning. For severity, patient reportsno fever. For context, patient reportsno recent uri,no recent ear infection, andno recent swimming. For associated symptoms, patient reportsno cough,no jaw popping or clicking,no discharge from ear,no nasal congestion,no nasal discharge,no sense of fullness,no sore throat,no jaw pain,no tinnitus, andno decreased hearing. For location, (pt has hearing aidesnoticed that right ear piece was missing and thinks it may be stuck in the right earno h\change in hearing, patient has [place]x of [place] foreign body sensation to the bilateral ears). Ear problem UCReported by Patient JARRELL MATTA NP [address] [place], [address], [place] - [facility] 08/27/2023 15:58:00
--- OUTSIDE RECORDS SUMMARY | 2025-03-17 08:45 | XMS_ITS | Data Portability ---
Author Organization STEVE Ed Garcia [facility] Address [address] [place] [address] Assessment No assessment recorded. Plan of Treatment Reminders Order Date Submit Date Provider Last Modified By Organization Details Last Modified Time Details Appointments None record ed. Lab None record ed. Referral None record ed. Procedures None record ed. Surgeries None record ed. Imaging XR, knee, 4 or more view - new right knee, [place] [facility] [place] [facility]25 [facility], [address] [facility] [address], [facility] [address], [address], 08:47:07 Medication Orders None record ed. Patient TargetsNo targets recorded. Patient InstructionsNo instructions recorded. Reason for Referral None Reported. Results Created Date Observation Date Name Description Value Unit Range Abnormal Flag Note LastModifiedBy Organization Detail LastModifiedTime 11/12/1911/11/2024 XR, knee, 4 or more view http:/ [email or web address] ?Encry pted=s hAaTro YD8dLq bEUv6g %2BXZw aYqtaq 0bqfl% 2Fg9IQ a4ajBk vP9nXo QUaueC m3YtLR FvZlgJ JJ8mAn HZtai3 8h6297 AC0Kla X6MVKC nKiQtr MwF INTERFACE [facility] [address], [place], [address], 11/11/2024 08:45:28 11/12/1911/11/2024 XR, knee, 4 or more view http:/ [email or web address] ?Encry pted=s hAaTro YD8dLq bEUv6g %2BXZw aYqtaq 0bqfl% 2Fg9IQ a4ajBk vP9nXo QUaueC m3YtLR FvZlgJ JJ8mAn HZtai3 3t4110 AC0Kla X6MVKC nKiQtr MwF INTERFACE [facility] [address], [place], [address], 11/11/2024 08:45:30 Result Notes Documentation Provider Name and Address Organization Details Recorded Time Xr, Knee, 4 Or More View : [email or web address]? Encrypted=suDzJzcZB3tBwgR Uv6g%9WICxqZtcey0coxy%2Fg 4HPf9ucHntW8cCyTKrknUr4Ea ABBkAmdNEZ6qMhZHffr44d319 8EQ2QinB9AOEEbWuGefCbX Not Available [facility] 11/11/2024 08:45: 29 Xr, Knee, 4 Or More View : [email or web address] Encrypted=kjZwRykOG4vGdgH Uv6g%6VXMypQonpq4moxu%2Fg 4WIn7cgDflK1mPcDUogdZi1Gt LYUfUltDUL2xRyVKcco57a987 7WB1RpiN4LBYMfGzGduHrD Not Available [facility] 11/11/2024 08:45: 31 Problems Name Problem SNOMED Code Status Onset Date Resolution Date Notes Provider Name and Address Organization Details Recorded Time Pain of right knee joint 8573214896278 00 Active 2024 RADHA munoz [place] - [facility] 08:32:42 Osteoarthri tis of right knee joint 7319506682077 00 Active 2024 Arabella Leblanc tte, PA-C [address], [place], [address], [facility] 13:16:00 Problem Notes None recorded. Procedures Surgical History Date Name Laterality Status Provider Name and Address Organization Details Recorded Time 11/11/2024 LIZBETH INJ completed Arabella Banks PA-C [address], [place], [address], [facility] 11/11/2024 13:15:50 Imaging Results None recorded. Procedure Notes None recorded. Medical Equipment None Reported. Allergies No known drug allergies Medications Name Sig Start Date Stop Date Status Note LastModified by Organization Details LastModified Time valsartan 160 mg-hydrochlo rothiazide 12.5 mg tablet TAKE 1 TABLET BY MOUTH DAILY active Not Available Not Available No t Available omeprazole 40 mg capsule,angel yed release TAKE 1 CAPSULE BY MOUTH DAILY 11/11 completed Not Available Not Available Not Available mirtazapine 15 mg tablet TAKE 1 TABLET BY MOUTH AT BEDTIME active Not Available Not Available No t Available metronidazol e 0.75 % topical gel APPLY TO NOSE TWICE DAILY FOR 3 MONTHS OR UNTIL IMPROVED . THEN REDUCE TO ONCE DAILY EVERY MORNING AFTER WASHING. active Not Available Not Available No t Available alprazolam ER 1 mg tablet,exten ded release 24 hr TAKE 1 TABLET BY MOUTH EVERY MORNING NEEDED FOR ANXIETY active Not Available Not Available No t Available bupropion HCl XL 300 mg 24 hr tablet, extended release TAKE 1 TABLET BY MOUTH DAILY active Not Available Not Available No t Available Vitals Date Recorded Body height Body mass index (BMI) Body weight Provider Name and Address Organization Details Last Updated DateTime 11/11/2024 180.34 cm 32.1 kg/m2 367076.25 g RADHA OCHOA [facility] 11/11/2024 08:32:11 Social History None recorded. Functional Status None recorded. Mental Status None recorded. Family History Nothing Reported. Medical History No medical history recorded. Past Encounters Encounter ID Performer Location Encounter Start Date Encounter Closed Date Diagnosis/Indication Diagnosis SNOMED-CT Code Diagnosis ICD10 Code Diagnosis IMO Codes Diagnosis Note [id number] Arabella kumar PA-C [facility] [address] [place] [address] 11/11/2024 08:16:17 11/21/2024 08:54:10 Pain of right knee joint 0997977432 24987 M25.561 354368 Osteoarthr itis of right knee joint 3375736031 25241 M17.11 1937248 Health Concerns Section Related Observation LastModified by Organization Detai ls LastModified Time None Recorded Concern Status LastModified by Organization Details LastModified Time None Recorded Advance Directives Directive None Recorded Payers Insurance Date Sequence Insurance Name Policy Number Policy Barry Covered Member ID Barry Member ID Guarantor Name 11/21/2024 1 [employer] (MEDICARE REPLACEMENT HMO) [id number] Angel Jose Alejandro [id number] Angel Jose Alejandro Notes Date Note Type Note Provider Name and Address Organization Details Recorded Time 11/11/2024 text/html ROS as noted in the HPI I am seeing the patient today under the supervision of Dr. Márquez who was available but who did not see the patient.Orthopedic urgent care visit:HPI: 84-year-old male presents with chief complaint of right anterolateral knee pain going on for couple of weeks with no precipitating injury or trauma. He reports he has pain in his knee when seated for a while while driving. He has some intermittent pain with activity at the anterolateral aspect of the knee. He denies any catching, locking, instability.Past family, medical, social history, review of systems, and vital signs have been reviewed, updated and signed by me and are located in the patient s chart.Examination: The patient is well appearing and in no apparent distress. Alert and oriented x3. Answers all questions appropriately. Gait is symmetric without assistive devices. Right knee exam demonstrates mild tenderness to palpation about the anterolateral joint line and lateral patellar facet. Otherwise bilateral range of motion 0-125 flexion ROM is full, stability intact both anterior, posterior, and varus/valgus stress at both 0 and 30 degrees of flexion. No meniscal tenderness. Negative Bandar's maneuver. No crepitus,no effusion, 5/5 strength. Peripheral, vascular, lymphatic examination, skin, neurological, coordination, reflexes, sensation are within normal limits.X-rays ordered, [facility] of the right knee demonstrate moderate degenerative changes at patellofemoral and lateral compartments with joint space narrowing and osteophyte formationImpression: 84-year-old male with moderate right knee osteoarthritisPlan: Findings and treatment options discussed with the patient and today he would like to proceed with a cortisone injection. He will monitor his symptoms and follow up as needed. We discussed that injections can be repeated once every 3 months as needed and we discussed additional treatment options including medications, physical therapy, ultimately the role of surgery. Questions answered. Arabella Banks PA-C [address] [place] [address] [address], [place], [address], [facility] - [facility] 11/11/2024 13:16:16
--- OUTSIDE RECORDS SUMMARY | 2025-03-17 08:45 | XMS_ITS | Patient Health Record ---
Author Organization [facility] Address [address] [place] [address] Care Team Providers Care Kitchen Stewardess Name Role Phone Marco A Alvarez Unavailable [phone] Reason For Referral No Information Plan Of Treatment No Information
[2025-03-17 11:10] LABS: MANUAL DIFF FLAG NO
[2025-03-17 11:24] LABS: Hematocrit 44.6 % (42.0-52.0); Hemoglobin 14.6 g/dl (14.0-18.0); Imm Gran Abs Auto 0.02 X10*3/uL (0.00-0.03); Imm Gran Pct Auto 0.3 % (0.0-0.4); Lymphocytes Absolute Auto 1.9 X10*3/uL (1.2-4.9); Mean Corpuscular HGB Conc 32.7 g/dl (31.0-36.0); Mean Corpuscular Hemoglobin 31.7 pg (27.0-33.0); Mean Corpuscular Volume 96.7 fL (80.0-98.0); NRBC Abs Auto 0.000 X10*3/uL (0.0-0.012); NRBC Pct Auto 0.0 /100WBC (0.0-0.2); Platelet Count 259 X10*3/uL (160-400); Red Blood Count 4.61 X10*6/uL (4.60-5.80); White Blood Count 6.7 X10*3/uL (4.8-10.8)
[2025-03-17 11:33] LABS: Appearance Urine Clear; Glucose Urine UA Negative (Negative); PH 7.5 (5.0-9.0); Specific Gravity - Urine 1.015 (1.005-1.025)
[2025-03-17 11:54] LABS: Alanine Aminotransferase 15 U/L (0-40); Albumin Level 4.1 g/dL (3.5-5.0); Alkaline Phosphatase 50 U/L (39-117); Anion Gap 10 (12-20); Aspartate Amino Transferase 29 U/L (5-37); Blood Urea Nitrogen 14 mg/dL (9-16); Calcium 9.2 mg/dL (8.4-10.2); Carbon Dioxide 30 mmol/L (22-29); Chloride 104 mmol/L (96-108); Cholesterol 184 mg/dL (<200); Estimated Glomerular Filt Rate > 60; HDL Cholesterol 53 mg/dL (>40); Potassium 3.8 mmol/L (3.3-5.1); Sodium 140 mmol/L (135-145); Total Protein 6.9 g/dL (6.5-8.0); Triglycerides 105 mg/dL (<150)
[2025-03-17 12:06] LABS: Folate 6.9 ng/mL (> or = 4.0); Vitamin B12 177 pg/mL (200-900)
== END 2025-03-17 08:36 | disposition home or self-care (01) ==
LOC: HO.WFDLDS 08:35
PROVIDERS: Visit Provider Internal Medicine
DX: E53.8 Deficiency of other specified B group vitamins (principal); R30.0 Dysuria; E78.00 Pure hypercholesterolemia, unspecified; D64.9 Anemia, unspecified; E55.9 Vitamin D deficiency, unspecified
CPT/HCPCS: 36415; 80053; 80061; 81003; 82306; 82607; 82746; 84443; 85025

== ENCOUNTER 2025-04-07 09:08 | Outpatient (AMB) | payer OTHER, SELFPAY ==
[2025-04-07 09:14] VITALS: BP 124/62; PULSE 49; O2SAT 97; BMI 34.3
--- NOTE | 2025-04-07 09:14 | A.OFFPC_ITS ---
Vital Signs 04/07/25 09:14 Height 5 ft 11 in Weight 246 lb 2 oz BMI 34.3 BP 124/62 Blood Pressure Location Lt brachial Position Sitting Pulse 49 L Pulse Source Pulse Oximeter Pulse Oximetry (%) 97 Oxygen Delivery Method Room Air Intake Visit Reasons: 4 mn f/u Dolly Operator Required: No Accompanied by: Self / Same As Patient Allergies No Known Drug Allergies Allergy (Unknown, Verified 04/07/25 09:41) Unknown Medication List - Last Reconciled 04/07/25 by Prudencio Hwang MD alprazolam ER 1 mg PO QAM PRN 90 days bupropion HCl XL 300 mg PO DAILY 90 days mirtazapine 15 mg PO BEDTIME 90 days omeprazole 40 mg PO DAILY 90 days valsartan-hydrochlorothiazide 160-12.5 mg 1 tab PO DAILY 90 days Tobacco use date assessed: 04/07/25 Fall risk assessment: No Falls in past year Last assessed Fall Risk: 04/07/25 Dental Screening Dental Screen Date: 04/07/25 Did you have a dental visit in the last 12 months?: Yes Did you have a dental problem in the last 6 months where you did not have access to dental care?: No Was dental information given to patient?: Patient has dentist HPI 4 [facility] f/u HPI Details Patient comes in today for his follow up visit States that he has been experiencing on and off transient pain over his left lower back/upper buttocks area that often starts when he gets up in the morning for the past 2 months States that his symptoms would then gradually subside once he is up and moving around and that his symptoms have not really affected his mobility although he noticed recently that he cannot bend over when his symptoms are ongoing He does not recall any recent injury or trauma to his left lower back and states that he does not do any heavy lifting that could have caused him to get hurt States that he feels okay otherwise He denies any headaches or dizziness Denies any chest pains, no SOB No nausea/vomiting, no abdominal pain No change in bowel habits noted He had his follow up labs done a few weeks ago - to discuss his results [facility] Medical History (Updated 04/07/25 @ 12:20 by Prudencio Hwang MD) Vitamin B12 deficiency Left inguinal hernia Obesity (BMI 30-39.9) Melanoma Depression Anxiety GERD without esophagitis Achilles tendinosis of right lower extremity Degenerative arthritis of right knee Vitamin D deficiency Benign essential hypertension Surgical History H/O right knee surgery History of cataract surgery Family History Mother No problems noted. Father No problems noted. Social History Housing: Condominium Alcohol intake: current Alcohol intake frequency: a few times a month Patient Tobacco Use Status: Never used Tobacco e-Cigarette/Vaping Use: Never Used Second Hand Smoke Exposure: Yes service: No Current occupational status: retired Cognitive needs: No Hearing needs: Yes Vision needs: Yes Questionnaire PHQ-9 Over the last 2 weeks, how often have you been bothered by any of the following problems? 1. Little interest or pleasure in doing things: nearly every day 2. Feeling down, depressed, or hopeless: more than half the days 3. Trouble falling or staying asleep, or sleeping too much: not at all 4. Feeling tired or having little energy: not at all 5. Poor appetite or overeating: not at all 6. Feeling bad about yourself - or that you are a failure or have let yourself or your family down: more than half the days 7. Trouble concentrating on things, such as reading the newspaper or watching television: not at all 8. Moving or speaking so slowly that other people could have noticed. Or the opposite - being so fidgety or restless that you have been moving around a lot more than usual: not at all 9. Thoughts that you would be better off or of hurting yourself in some way: not at all Total score: 7 Depression Screening Interpretation: Positive Depression Screening Follow-up: Existing condition and In treatment Depression Screening Done: Yes 78150 - PHQ-9 Billing: Yes Source: Developed by Drs. Marco A Werner, Adelaida Davis, Jero Patiño and colleagues, with an educational colette from [employer]. Thrive Questionnaire Date Thrive assessed: 04/07/25 I am a: Patient What is your living situation today?: I have a steady place to live Within the past 12 months, did the food you bought not last and you didn't have the money to get more?: Never true Within the past 12 months, did you worry whether your food would run out before you got money to buy more?: Never true Do you have trouble paying for medicines?: No Do you have trouble getting transportation to medical appointments?: No Do you have trouble paying your heating and electricity bill?: No Do you have trouble taking care of your child, family member or friend?: No Do you have trouble with day-to-day activities such as bathing, preparing meals, shopping, managing finances, etc.?: No Are you currently unemployed and looking for a job?: No Are you interested in more education?: No Please select the resources that you would like help with: None Currently or been in a relationship where the following occur: I choose not to answer THRIVE Score: 0 AUDIT C Alcohol Use Questionnaire (AUDIT-C) 1. How often do you have a drink containing alcohol?: 4 or more times a week 2. How many drinks containing alcohol do you have on a typical day when you are drinking?: 3 or 4 3. How often do you have six or more drinks on one occasion?: Weekly Total Score: 8 Score Reviewed/Action Taken: Yes KINJAL-7 AMB Questionnaire KINJAL-7 Date KINJAL - 7 assessed: 04/07/25 Feeling nervous, anxious, or on edge: 2 = More than half the days Not being able to stop or control worryin = Not at all Worrying too much about different things: 2 = More than half the days Trouble relaxin = Not at all Being so restless that it is hard to sit still: 0 = Not at all Becoming easily annoyed or irritable: 0 = Not at all Feeling afraid as if something awful might happen: 0 = Not at all Total KINJAL-7 score (0-4 normal; 5-9 mild; 10-14 moderate; 15-21 severe): 4 Source: Developed by Drs. Marco A Werner, Adelaida Davis, Jero Patiño and colleagues, with an educational colette from [employer]. Review of Systems Const Denies chills, Denies fatigue, Denies fever(s) and Denies headache(s) ENT Denies dysphagia, Denies dizziness, Denies otalgia, Denies headache(s), Denies neck pain, Denies odynophagia and Denies sore throat Card Denies chest pain, Denies palpitations and Denies dyspnea Resp Denies cough and Denies dyspnea GI Denies abdominal pain, Denies constipation, Denies dysphagia, Denies heartburn, Denies diarrhea, Denies loose stools, Denies nausea, Denies odynophagia and Denies vomiting Denies difficulty urinating, Denies dysuria, Denies nocturia and Denies urinary frequency Musc Reports back pain (on and off over the left lower back - see HPI for details) and Denies neck pain Skin/Breast Denies rash Neuro Denies dizziness and Denies headache(s) Psych Reports depression (Rx helping) Endo Denies fatigue and Denies palpitations Physical exam (Primary Care) Vital Signs: Last Vital Signs Pulse 49 L 04/07/25 09:14 BP 124/62 04/07/25 09:14 Pulse Ox 97 04/07/25 09:14 Oxygen Delivery Method Room Air 04/07/25 09:14 BMI result Body Mass Index 34.3 Tobacco/Smoking Status: Tobacco use Status Tobacco use date assessed 04/07/25 04/07/25 09:19 Patient Tobacco Use Status Never used Tobacco 04/07/25 09:19 e-Cigarette/Vaping Use Never Used 04/07/25 09:19 PHQ-9: PHQ-9 Score PHQ-9: Total score 7 04/07/25 09:19 Depression Screening Interpretation: Positive Depression Screening Follow-up: Existing condition and In treatment Thrive Assessment: Date of Thrive Assessment Date Thrive assessed 04/07/25 04/07/25 09:19 Currently or been in a relationship where the following occur: I choose not to answer Const General: no acute distress and alert HENMT Ears: TM's normal bilaterally and EAC's normal Throat: Yes posterior oropharynx normal and Yes tonsils normal (no TP congestion) Neck Neck: Yes supple and No lymphadenopathy Thyroid: Thyroid normal Resp Auscultation: clear to auscultation bilaterally, no rales and no wheezes Cardio Rate: bradycardic Rhythm: regular rhythm Heart sounds: Murmur heart sound present systolic soft, II/ and at the right sternal border GI Palpation (GI): Soft to palpation and nontender Auscultation: normal bowel sounds General: Yes no CVA tenderness Back/Spine/Pelvis Back: no CVA tenderness Thoracic/Lumbar Spine: paraspinal muscle tenderness on the left in the mid lumbar and in the lower lumbar and No lumbar spinal tenderness Sacroiliac joints: on the left tender to palpation Skin Rashes: no rashes Extrem General: Yes no clubbing, cyanosis or edema Results Reviewed Results Reviewed: Laboratory Tests 03/17/25 03/17/25 08:38 08:47 WBC 6.7 Hgb 14.6 Hct 44.6 Plt Count 259 Sodium 140 Potassium 3.8 Creatinine 1.11 Estimated GFR > 60 Fasting Glucose 98 Calcium 9.2 AST 29 ALT 15 Triglycerides 105 Cholesterol 184 LDL Cholesterol, Calc 110 H HDL Cholesterol 53 Vitamin B12 177 L 25-OH Vitamin D Total 45.1 TSH 1.54 Ur Specific [place] 1.015 Urine Protein Negative Urine Glucose (UA) Negative Urine Blood Negative Urine Nitrite Negative Ur Leukocyte Esterase Negative Coding Level of Care Code Est Pt Level 4 (13796) Diagnoses Bradycardia R00.1 Cardiac murmur R01.1 Benign essential hypertension I10 GERD without esophagitis K21.9 Left inguinal hernia K40.90 Vitamin D deficiency E55.9 Vitamin B12 deficiency E53.8 Left-sided low back pain without sciatica, unspecified chronicity M54.50 Chronicity: unspecified Sciatica presence: without sciatica Anxiety F41.9 Episode of recurrent major depressive disorder, unspecified depression episode severity F33.9 Depression Type: major depressive disorder Major depression recurrence: recurrent Active/Remission status: currently active Major depression episode severity: unspecified Obesity (BMI 30-39.9) E66.9 Additional Codes PHQ-9 - 70809 - PHQ-9 Billing: Yes ([id number]) Assessment & Plan Assessment & Plan (1) Bradycardia: Code(s): R00.1 - Bradycardia, unspecified Category: Medical Plan: Patient continues to present with bradycardia, with HR of around 49 bpm today His heart rate was again confirmed to be in the upper 40's on direct palpation of his radial pulse for a full minute; cardiac rhythm sounds normal on chest auscultation, with no apparent skipped beats noted Patient denies any recent symptoms of dizziness, orthostasis or increased /unexplained fatigue He denies any increased SOB or KIRK, and denies any chest pains He's had no cardiac tests or procedures done in the past 20 years - previous EKG and echocardiogram were done in the when he was still with Dr. Marcy Rock as his PCP He was send for a 12-lead EKG for further evaluation at his last visit and EKG showed sinus bradycardia with 1st degree AV block, LAD, RBBB, with no acute ST-T wave changes He was also sent for an echocardiogram for further evaluation of his cardiac murmur and it does not look like he's had this done as we could not find any record of this anywhere Will discuss this again with patient at his next follow up appointment in a few months to see if we can try to get an echocardiogram reordered and done to get a better sense of his current cardiac condition (2) Cardiac murmur: Code(s): R01.1 - Cardiac murmur, unspecified Category: Medical Plan: He has a soft systolic murmur noted on auscultation, more noticeable at the upper right sternal border suggestive of an aortic stenosis murmur He was sent for an echocardiogram for further evaluation last year - patient requested to have this done at [facility] as it is closer to home and more convenient for him It looks like for unclear reasons, his echocardiogram was never done and was eventually cancelled (3) Benign essential hypertension: Code(s): I10 - Essential (primary) hypertension Category: Medical Plan: Reinforced low sodium diet - goal is systolic BP of at least 140 mm or less Continue Valsartan-HCT 160-12.5 mg QD Will have patient recheck his labs in 4 months for follow up (4) GERD without esophagitis: Code(s): K21.9 - Gastro-esophageal reflux disease without esophagitis Category: Medical Plan: Dietary restrictions reinforced Continue Omeprazole 40 mg QD Follow up with GI as scheduled Patient had a Cologuard test done in 2022 that came out negative (5) Left inguinal hernia: Code(s): K40.90 - Unilateral inguinal hernia, without obstruction or gangrene, not specified as recurrent Category: Medical Plan: Pelvic US done in August 2024 revealed (+) 1.6 cm left inguinal hernial defect He was seen by surgery at [facility] back in September 2024 and as patient did indicate that he prefers not to have any surgery done if it can be avoided and since he currently does not really have much in terms of symptoms and given the small size of the hernia, will continue with watchful waiting/continued observation in the meantime (6) Vitamin D deficiency: Code(s): E55.9 - Vitamin D deficiency, unspecified Category: Medical Plan: Continue OTC Vitamin D3 2000 units QD (7) Vitamin B12 deficiency: Code(s): E53.8 - Deficiency of other specified B group vitamins Category: Medical Plan: Patient is advised of his low vitamin B12 level on his recent labs Will start him on OTC Vitamin B12 500 mcg QD (8) Left low back pain: Code(s): M54.50 - Low back pain, unspecified Category: Medical Qualifiers: Chronicity: unspecified Sciatica presence: without sciatica Qualified Code(s): M54.50 - Low back pain, unspecified Plan: Unclear etiology at this time Will have patient go and get x-rays of the lumbar spine and SI joints PEYTON for further evaluation and further recommendations witll depend on how his imaging studies come out (9) Anxiety: Code(s): F41.9 - Anxiety disorder, unspecified Category: Medical Plan: Continue Alprazolam ER 1 mg Q AM PRN and Bupropion XL 300 mg Q AM (10) Depression: Code(s): F32.A - Depression, unspecified Category: Medical Qualifiers: Depression Type: major depressive disorder Major depression recurrence: recurrent Active/Remission status: currently active Major depression episode severity: unspecified Qualified Code(s): F33.9 - Major depressive disorder, recurrent, unspecified Plan: Continue Bupropion XL 300 mg Q AM and Mirtazapine 15 mg Q HS Follow up with psychiatry as scheduled (11) Obesity (BMI 30-39.9): Code(s): E66.9 - Obesity, unspecified Category: Medical Plan: Reinforced diet; exercise and weight loss may not be realistic given patient's age and comorbidities Plan Follow up in 4 months Orders: Orders XR sacroiliac joint min 3V Today M54.50 - Low back pain, unspecified Lipid Panel 4 Months E78.00 - Pure hypercholesterolemia, unspecified Vitamin B12 and Folate 4 Months E53.8 - Deficiency of other specified B group vitamins Vitamin D 25-OH Total 4 Months E55.9 - Vitamin D deficiency, unspecified XR lumbar spine 2-3V Today M54.50 - Low back pain, unspecified Complete Blood Count Auto Diff 4 Months D64.9 - Anemia, unspecified Comprehensive [place]. Panel Fast 4 Months E78.00 - Pure hypercholesterolemia, unspecified UA CC w/rflx Micro + Cult 4 Months R30.0 - Dysuria Methylmalonic Acid 4 Months E53.8 - Deficiency of other specified B group vitamins Medications: New mecobalamin (vitamin B12) 500 mcg PO DAILY 90 tabs 3RF 90 days
--- OUTSIDE RECORDS SUMMARY | 2025-04-07 09:36 | XMS_ITS | Data Portability ---
Author Organization ROBI Hackett [facility] Address [address] [place] [address] Assessment Encounter Date Assessment Date Assessment LastModified [...] None recorded. Procedures cerumen removal (PROC) [address] [facility], [address] [place], [address], 17:40:06 Surgeries None recorded. Imaging None recorded. Medication Orders Debrox 6.5 % ear drops 0[address] [id number], [address], [id number], 15:56:34 Patient TargetsNo targets recorded. Patient Instructions Encounter Date Encounter Id Patient Instructions Last Modified By Organization Details Last Modified Time 08/27/2023 [id number] hearing loss: care instructions chris Not available 08/27/2023 15:56:23 Reason for Referral None Reported. Results Created Date Observation Date Name Description Value Unit Range Abnormal Flag Note LastModifiedBy Organization Detail LastModifiedTime Result Notes None recorded. Problems Name Problem SNOMED Code Status Onset Date Resolution Date Notes Provider Name and Address Organization Details Recorded Time Anxiety 58459115 Active Demetrice Proctor alexander, [place] - [facility] 4 15:27:00 Acid reflux 018145417 Active Demetrice munoz, PA - [facility] 4 15:27:07 Hypertensiv e disorder 34208420 Active Demetrice Proctor alexander, [place] - [facility] 4 15:27:21 Depressive disorder 29238329 Active Demetrice munoz, [place] - [facility] 4 15:27:33 Impacted cerumen of bilateral ears 1913772158228 108 Active 2023 JARRELL MATTA NP [address] [place], [address] [facility] PA - [facility] 4 15:37:25 Problem [...] Recorded Body height Body weight Oxygen saturation Heart rate Respiratory rate Systolic And Diastolic Provider Name and Address Organization Details Last Updated DateTime 4 180.34 cm 024507. 25 g 96 % 80 /min 16 /min 172/92 mm[Hg] Demetrice Proctor PA - [facility] 4 15:30:14 Social History None recorded. Functional Status Question Answer Note LastModified by Organizat ion Details LastModified Time Do you use any illicit or recreational drugs? No [email or web address] Information not available 08/27/2023 What is your level of alcohol consumption? Occasional [email or web address] Information not available 08/27/2023 Mental Status None recorded. Family History Nothing Reported. Medical History No medical history recorded. Past Encounters Encounter ID Performer Location Encounter Start Date Encounter Closed Date Diagnosis/Indication Diagnosis SNOMED-CT Code Diagnosis ICD10 Code Diagnosis IMO Codes Diagnosis Note [id number] _[facility] _[address] [address] 11/15/2017 09:50:09 11/15/2017 10:24:25 [id number] JARRELL MATTA NP _[address] [address] 08/27/2023 15:19:50 08/27/2023 15:57:57 Anxiety 04221693 F41.9 Impacted c erumen of bilateral ears 4173420825 577603 H61.23 Health Concerns Section Related Observation LastModified by Organization Detai ls LastModified Time None Recorded Concern Status LastModified by Organization Details LastModified Time None Recorded Advance Directives Directive None Recorded Payers Insurance Date Sequence Insurance Name Policy Number Policy Barry Covered Member ID Barry Member ID Guarantor Name 08/27/2023 1 [facility] (MEDICAID HMO) [id number] 01 Jose Enrique Blount [id number] Jose Enrique Blount Notes Date Note Type [...] JARRELL MATTA NP [address] [place], [address], [place] - [facility] 08/27/2023 15:58:00
--- OUTSIDE RECORDS SUMMARY | 2025-04-07 09:37 | XMS_ITS | Data Portability ---
Author Organization STEVE Ed Garcia [facility] Address [address] [place] [address] Assessment No assessment recorded. Plan of Treatment Reminders Order Date Submit Date Provider Last Modified By Organization Details Last Modified Time Details Appointments None record ed. Lab None record ed. Referral None record ed. Procedures None record ed. Surgeries None record ed. Imaging XR, knee, 4 or more view - new right knee, room [facility] 2024 025 [facility], [address] [facility] [place], [facility] [address], [place], [address], 08:47:07 Medication Orders None record ed. Patient TargetsNo targets recorded. Patient InstructionsNo instructions recorded. Reason for Referral None Reported. Results Created Date Observation Date Name Description Value Unit Range Abnormal Flag Note LastModifiedBy Organization Detail LastModifiedTime 11/12/1911/11/2024 XR, knee, 4 or more view http:/ [email or web address] ?Encry pted=s hAaTro YD8dLq bEUv6g %2BXZw aYqtaq 0bqfl% 2Fg9IQ a4ajBk vP9nXo QUaueC m3YtLR FvZlgJ JJ8mAn HZtai3 9x5484 AC0Kla X6MVKC nKiQtr MwF INTERFACE [facility] [address], [place], [address], 11/11/2024 08:45:28 11/12/1911/11/2024 XR, knee, 4 or more view http:/ [email or web address] ?Encry pted=s hAaTro YD8dLq bEUv6g %2BXZw aYqtaq 0bqfl% 2Fg9IQ a4ajBk vP9nXo QUaueC m3YtLR FvZlgJ JJ8mAn HZtai3 0g5917 AC0Kla X6MVKC nKiQtr MwF INTERFACE [facility] [address], [place], [address], 11/11/2024 08:45:30 Result Notes Documentation Provider Name and Address Organization Details Recorded Time Xr, Knee, 4 Or More View : [email or web address]? Encrypted=zkWvPopPM6fCvzO Uv6g%2GZUhcAqpsm6ohiv%2Fg 9HBb6eoQdeG5cSaIKcwvQf0Mo LELwAnuMQV2fXdHHcpt66h114 6MT0WkhS8XONSdBnZvzOsT Not Available [facility] 11/11/2024 08:45: 29 Xr, Knee, 4 Or More View : [email or web address] Encrypted=nhEuQdtON1sWruY Uv6g%8XUGunZabdr7cznf%2Fg 5HZi8laHxaC6fVsEQbsfVt8Et VWPcEgtPVG1qVdLDxir44j407 1XR6SnxZ1DEDOrHsYhgIfQ Not Available [facility] 11/11/2024 08:45: 31 Problems Name Problem SNOMED Code Status Onset Date Resolution Date Notes Provider Name and Address Organization Details Recorded Time Pain of right knee joint 5812251321306 00 Active 2024 RADHA munoz [place] - [facility] 08:32:42 Osteoarthri tis of right knee joint 2659698521984 00 Active 2024 Arabella Leblanc tte, PA-C [address], [place], [address], [facility] 13:16:00 Problem Notes None recorded. Procedures Surgical History Date Name Laterality Status Provider Name and Address Organization Details Recorded Time 11/11/2024 LIZBETH INJ completed Arabella Banks PA-C [address], [place], [address], [facility] 11/11/2024 13:15:50 Imaging Results None recorded. [...] Updated DateTime 11/11/2024 180.34 cm 32.1 kg/m2 537145.25 g RADHA [facility]CHOA [facility] 11/11/2024 08:32:11 Social History None recorded. Functional Status None recorded. Mental Status None recorded. Family History Nothing Reported. Medical History No medical history recorded. Past Encounters Encounter ID Performer Location Encounter Start Date Encounter Closed Date Diagnosis/Indication Diagnosis SNOMED-CT Code Diagnosis ICD10 Code Diagnosis IMO Codes Diagnosis Note [id number] Arabella kumar PA-C [facility] [address] [place] [address] 11/11/2024 08:16:17 11/21/2024 08:54:10 Pain of right knee joint 4254545455 99867 M25.561 289970 Osteoarthr itis of right knee joint 6612996888 70698 M17.11 4777074 Health Concerns Section Related Observation LastModified by Organization Detai ls LastModified Time None Recorded Concern Status LastModified by Organization Details LastModified Time None Recorded Advance Directives Directive None Recorded Payers Insurance Date Sequence Insurance Name Policy Number Policy Barry Covered Member ID Barry Member ID Guarantor Name 11/21/2024 1 [employer] MED[employer] PLAN (MEDICARE REPLACEMENT HMO) [id number] 1 Angel Jose Alejandro [id number] Angel Jose Alejandro Notes Date Note Type [...] normal limits.X-rays ordered, obtained and reviewed at [facility] 4 views of the right knee demonstrate [...] of surgery. Questions answered. Arabella Banks PA-C [address] [place] [address] [address], [place], [address], [facility] - [facility] 11/11/2024 13:16:16
== END 2025-04-07 10:00 | disposition home or self-care (01) ==
LOC: HO.HMCH 09:09
PROVIDERS: PCP Internal Medicine; Visit Provider Internal Medicine
DX: R00.1 Bradycardia, unspecified (principal); R01.1 Cardiac murmur, unspecified; E66.9 Obesity, unspecified; Z68.34 Body mass index [BMI] 34.0-34.9, adult; I10 Essential (primary) hypertension; K21.9 Gastro-esophageal reflux disease without esophagitis; K40.90 Unilateral inguinal hernia, without obstruction or gangrene, not specified as recurrent; E55.9 Vitamin D deficiency, unspecified; E53.8 Deficiency of other specified B group vitamins; M54.50 Low back pain, unspecified; F41.9 Anxiety disorder, unspecified; F33.9 Major depressive disorder, recurrent, unspecified

== ENCOUNTER 2025-04-07 09:08 | Outpatient (REF) | payer OTHER, SELFPAY ==
--- NOTE | ~2025-04-07 | XR_ITS ---
EXAMINATION: XR SACROILIAC JOINTS CLINICAL INFORMATION: M54.50 - Low back pain, unspecified COMPARISON: None available. TECHNIQUE: AP and oblique views of the sacroiliac joints FINDINGS: No acute cortical disruption. No lytic or blastic lesions. No gross vacuum phenomenon. Facet joint hypertrophy at L5-S1. Marginal osteophyte formation L4-5 and L5-S1. Degenerative changes in the symphysis pubis. XR/XR sacroiliac joint min 3V IMPRESSION: No gross sacroiliitis. Lower lumbar spondylosis. Degenerative changes, symphysis pubis. Electronically signed by: Krzysztof Mackenzie MD 04/07/2025 10:44 AM [facility]
--- NOTE | ~2025-04-07 | XR_ITS ---
EXAMINATION: XR LUMBOSACRAL SPINE CLINICAL INFORMATION: M54.50 - Low back pain, unspecified COMPARISON: None available. TECHNIQUE: Three views of the lumbosacral spine. FINDINGS: Mild degenerative changes are noted in the hip joints with small marginal osteophytes and mild axial joint space narrowing. There are 5 non-rib bearing lumbar segments. No fractures are identified. T12-L1: There is mild disc space narrowing and bridging anterior osteophyte. L1-L2: There is mild grade 1 retrolisthesis with mild to moderate disc space narrowing and endplate osteophytes. L2-L3: There is mild disc space narrowing with endplate osteophytes and facet sclerosis. L3-L4: There is minimal grade 1 retrolisthesis with mild to moderate disc space narrowing, vacuum phenomena, and endplate osteophytes. Minimal facet osteophytes are present. L4-L5: There is mild to moderate disc space narrowing with bridging anterior osteophyte and facet sclerosis. L5-S1: There is moderate disc space narrowing with endplate sclerosis and bridging anterior osteophyte. There is also facet sclerosis. XR/XR lumbar spine 2-3V IMPRESSION: Multilevel degenerative disc disease and facet osteoarthritis. Mild degenerative changes in the bilateral hip joints. Electronically signed by: Oz Hopkins MD 04/07/2025 10:47 AM [facility]
== END 2025-04-07 09:09 | disposition home or self-care (01) ==
LOC: HO.XRAY 09:08
PROVIDERS: PCP Internal Medicine; Visit Provider Internal Medicine
DX: M54.50 Low back pain, unspecified (principal); Z13.31 Encounter for screening for depression; Z13.39 Encounter for screening examination for other mental health and behavioral disorders
CPT/HCPCS: 72100; 72202; 96127

== ENCOUNTER → 2025-04-07 10:11 | Outpatient (BNV) | payer OTHER, SELFPAY | PROVIDERS: PCP Internal Medicine; Visit Provider Radiology Diagnostic Radiology | DX: M47.816 Spondylosis without myelopathy or radiculopathy, lumbar region (principal); M51.360 Other intervertebral disc degeneration, lumbar region with discogenic back pain only | CPT/HCPCS: 72100; 72202 ==